=== PATIENT | male | born 1945 | race Caucasian/White ===

== ENCOUNTER 2019-04-25 17:08 | Emergency (ER) | payer BC, MEDICARE ==
[2019-04-25 17:21] VITALS: RESP 20; TEMP 97.6
[2019-04-25] MEDS ORDERED: IPRATROPIUM-ALBUTEROL 3 ML NEB INHALATION STA (17:52)
--- NOTE | 2019-04-25 18:18 | ED ---
SOB HPI - General Chief Complaint: Shortness of Breath Stated Complaint: SOB Time Seen by Provider: 04/25/19 17:39 Source: patient, RN notes reviewed, old records reviewed Mode of arrival: ambulatory Limitations: no limitations - History of Present Illness Initial Comments: This is a 74-year-old male here for evaluation presents today for evaluation of shortness of breath history of heart failure patient quit smoking about 6 months ago. Increased cough or congestion but although it feels better in the [place] is in the room with oxygen. Patient denying any fevers no chest pain or shortness of breath currently. No recent travel history, no other complaints MD Complaint: shortness of breath, cough -: days(s) Severity: moderate Severity scale (1-10): 4 Consistency: constant Improves With: oxygen, rest Worsens With: exertion, movement Known History Of: COPD, congestive heart failure Context: recent URI Associated Symptoms: cough, sputum production Treatments Prior to Arrival: none - Related Data Allergies Allergy/AdvReac Type Severity Reaction Status Date / Time No Known Allergies Allergy Verified 04/25/19 17:21 Review of Systems ROS Statement: Those systems with pertinent positive or pertinent negative responses have been documented in the HPI. ROS Other: All systems not noted in ROS Statement are negative. Past Medical History Past Medical History: Heart Failure, Hyperlipidemia, Hypertension History of Any Multi-Drug Resistant Organisms: None Reported Past Surgical History: Appendectomy Past Psychological History: No Psychological Hx Reported Smoking Status: Light tobacco smoker Past Alcohol Use History: None Reported Past Drug Use History: None Reported General Exam Limitations: no limitations General appearance: alert, in no apparent distress Head exam: Present: atraumatic, normocephalic, normal inspection Eye exam: Present: normal appearance, PERRL, EOMI. Absent: scleral icterus, conjunctival injection, periorbital swelling ENT exam: Present: normal exam, mucous membranes moist Neck exam: Present: normal inspection. Absent: tenderness, meningismus, lymphadenopathy Respiratory exam: Present: wheezes, decreased breath sounds, prolonged exp iratory. Absent: respiratory distress, rales, rhonchi, stridor Cardiovascular Exam: Present: normal rhythm, tachycardia, normal heart sounds. Absent: systolic murmur, diastolic murmur, rubs, gallop, clicks GI/Abdominal exam: Present: soft, normal bowel sounds. Absent: distended, tenderness, guarding, rebound, rigid Extremities exam: Present: normal inspection, full ROM, normal capillary refill. Absent: tenderness, pedal edema, joint swelling, calf tenderness Back exam: Present: normal inspection Neurological exam: Present: alert, oriented X3, CN II-XII intact Psychiatric exam: Present: normal affect, normal mood Skin exam: Present: warm, dry, intact, normal color. Absent: rash Course Vital Signs 04/25/19 04/25/19 04/25/19 17:19 18:38 18:50 Temperature 97.6 F Pulse Rate 101 H 101 H 100 Respiratory 20 Rate Blood Pressure 125/83 108/87 O2 Sat by Pulse 92 L 98 Oximetry 04/25/19 19:00 Temperature Pulse Rate 102 H Respiratory Rate Blood Pressure O2 Sat by Pulse Oximetry - Reevaluation(s) Reevaluation #1: 04/25/19 19:57 Medical record is reviewed Reevaluation #2: 04/25/19 19:57 Patient feels significantly improved Medical Decision Making - Medical Decision Making Finality of cough and shortness of breath. Mild bronchitis no pneumonia on x- ray no significant findings of hardware no chest pain no significant consideration for DVT or PE. Patient stable at this time and can be discharged home - Lab Data Result diagrams: 04/25/19 18:25 04/25/19 18:25 Lab Results 04/25/19 04/25/19 04/25/19 Range/Units 18:25 18:25 18:25 WBC 10.6 (3.8-10.6) k/uL RBC 4.22 L (4.30-5.90) m/uL Hgb 13.4 (13.0-17.5) gm/dL Hct 41.1 (39.0-53.0) % MCV 97.4 (80.0-100.0) fL MCH 31.8 (25.0-35.0) pg MCHC 32.7 (31.0-37.0) g/dL RDW 16.9 H (11.5-15.5) % Plt Count 284 (150-450) k/uL Neutrophils % 87 % Lymphocytes % 6 % Monocytes % 5 % Eosinophils % 1 % Basophils % 0 % Neutrophils # 9.2 H (1.3-7.7) k/uL Lymphocytes # 0.6 L (1.0-4.8) k/uL Monocytes # 0.6 (0-1.0) k/uL Eosinophils # 0.1 (0-0.7) k/uL Basophils # 0.0 (0-0.2) k/uL Anisocytosis Slight Macrocytosis Slight PT 14.1 H (9.0-12.0) sec INR 1.4 H (<1.2) APTT 26.0 (22.0-30.0) sec Sodium 138 (137-145) mmol/L Potassium 5.1 (3.5-5.1) mmol/L Chloride 105 (98-107) mmol/L Carbon Dioxide 22 (22-30) mmol/L Anion Gap 11 mmol/L BUN 33 H (9-20) mg/dL Creatinine 1.13 (0.66-1.25) mg/dL Est GFR (CKD-EPI)AfAm 73 (>60 ml/min/1.73 sqM) Est GFR (CKD-EPI)NonAf 64 (>60 ml/min/1.73 sqM) Glucose 127 H (74-99) mg/dL Calcium 9.6 (8.4-10.2) mg/dL Magnesium 2.0 (1.6-2.3) mg/dL Total Bilirubin 3.0 H (0.2-1.3) mg/dL AST 94 H (17-59) U/L ALT 108 H (21-72) U/L Alkaline Phosphatase 205 H (38-126) U/L Creatine Kinase 80 (55-170) U/L Troponin I (0.000-0.034) ng/mL NT-Pro-B Natriuret Pep pg/mL Total Protein 7.8 (6.3-8.2) g/dL Albumin 4.2 (3.5-5.0) g/dL 04/25/19 04/25/19 Range/Units 18:25 18:25 WBC (3.8-10.6) k/uL RBC (4.30-5.90) m/uL Hgb (13.0-17.5) gm/dL Hct (39.0-53.0) % MCV (80.0-100.0) fL MCH (25.0-35.0) pg MCHC (31.0-37.0) g/dL RDW (11.5-15.5) % Plt Count (150-450) k/uL Neutrophils % % Lymphocytes % % Monocytes % % Eosinophils % % Basophils % % Neutrophils # (1.3-7.7) k/uL Lymphocytes # (1.0-4.8) k/uL Monocytes # (0-1.0) k/uL Eosinophils # (0-0.7) k/uL Basophils # (0-0.2) k/uL Anisocytosis Macrocytosis PT (9.0-12.0) sec INR (<1.2) APTT (22.0-30.0) sec Sodium (137-145) mmol/L Potassium (3.5-5.1) mmol/L Chloride (98-107) mmol/L Carbon Dioxide (22-30) mmol/L Anion Gap mmol/L BUN (9-20) mg/dL Creatinine (0.66-1.25) mg/dL Est GFR (CKD-EPI)AfAm (>60 ml/min/1.73 sqM) Est GFR (CKD-EPI)NonAf (>60 ml/min/1.73 sqM) Glucose (74-99) mg/dL Calcium (8.4-10.2) mg/dL Magnesium (1.6-2.3) mg/dL Total Bilirubin (0.2-1.3) mg/dL AST (17-59) U/L ALT (21-72) U/L Alkaline Phosphatase (38-126) U/L Creatine Kinase (55-170) U/L Troponin I <0.012 (0.000-0.034) ng/mL NT-Pro-B Natriuret Pep 5110 pg/mL Total Protein (6.3-8.2) g/dL Albumin (3.5-5.0) g/dL - Radiology Data Radiology results: report reviewed (Chest x-ray is negative for acute disease), image reviewed Disposition Clinical Impression: Acute exacerbation of chronic obstructive pulmonary disease Disposition: HOME SELF-CARE Condition: Good Instructions (If sedation given, give patient instructions): Acute Bronchitis (ED) Is patient prescribed a controlled substance at d/c from ED?: No Referrals: Hiram Briggs MD [Primary Care Provider] - 1-2 days
[2019-04-25 18:34] LABS: Anisocytosis Slight; Basophils % (A) 0 %; Eosinophils # (A) 0.1 k/uL (0-0.7); Eosinophils % (A) 1 %; HCT 41.1 % (39.0-53.0); HGB 13.4 gm/dL (13.0-17.5); Lymphocytes # (A) 0.6 k/uL (1.0-4.8); Lymphocytes % (A) 6 %; MCH 31.8 pg (25.0-35.0); MCHC 32.7 g/dL (31.0-37.0); MCV 97.4 fL (80.0-100.0); Macrocytosis Slight; Mean Platelet Volume 7.4; Monocytes # (A) 0.6 k/uL (0-1.0); Monocytes % (A) 5 %; Neutrophils # (A) 9.2 k/uL (1.3-7.7); Neutrophils % (A) 87 %; Platelet Count 284 k/uL (150-450); RBC 4.22 m/uL (4.30-5.90); RDW 16.9 % (11.5-15.5); WBC 10.6 k/uL (3.8-10.6)
[2019-04-25 18:43] LABS: INR 1.4 (<1.2); Prothrombin Time 14.1 sec (9.0-12.0)
[2019-04-25 18:57] LABS: Albumin 4.2 g/dL (3.5-5.0); Calcium 9.6 mg/dL (8.4-10.2); Potassium 5.1 mmol/L (3.5-5.1); Total Protein 7.8 g/dL (6.3-8.2)
--- NOTE | 2019-04-25 19:37 | XR ---
EXAMINATION TYPE: XR chest 2V DATE OF EXAM: 04/25/2019 COMPARISON: None HISTORY: Difficulty breathing TECHNIQUE: Frontal and lateral views of the chest are obtained. FINDINGS: Heart is slightly enlarged. There is no heart failure. There is slight coarsening of inter stitial markings. There are chest leads. Bony thorax is intact. IMPRESSION: Mild cardiomegaly. Minimal fibrotic changes. No heart failure.
[2019-04-25] MEDS ORDERED: DEXAMETHASONE SOD PHOSPHATE 10 MG/ML 1 ML VIAL IV STA (20:09)
[2019-04-25] MEDS ORDERED: AZITHROMYCIN 500 MG TAB PO STA (20:09)
[2019-04-25 21:03] VITALS: BP 119/83; PULSE 92
== END 2019-04-25 21:13 | disposition home or self-care (01) ==
LOC: EC 17:08
DX: J44.1 Chronic obstructive pulmonary disease with (acute) exacerbation (principal); F17.210 Nicotine dependence, cigarettes, uncomplicated; I11.0 Hypertensive heart disease with heart failure; I50.9 Heart failure, unspecified
CPT/HCPCS: 36415; 94640; 93005; 83880; 80053; 82550; 83735; 84484; 85025; 85610; 85730; 71046; 99285; 96374; J1100

== ENCOUNTER 2019-05-04 14:28 | Inpatient (IN) | payer MEDICARE ==
[2019-05-04] MEDS ORDERED: SODIUM CHLORIDE 0.9% 1,000 ML IV STA (15:22)
[2019-05-04] MEDS ORDERED: FUROSEMIDE 10 MG/ML 4 ML VIAL IV STA (15:22)
[2019-05-04] MEDS ORDERED: IPRATROPIUM-ALBUTEROL 3 ML NEB INHALATION STA (15:22)
[2019-05-04 15:56] LABS: Anisocytosis Slight; Basophils % (A) 0 %; Eosinophils # (A) 0.1 k/uL (0-0.7); Eosinophils % (A) 1 %; HCT 47.6 % (39.0-53.0); HGB 15.3 gm/dL (13.0-17.5); Hypochromasia Slight; Lymphocytes # (A) 0.9 k/uL (1.0-4.8); Lymphocytes % (A) 10 %; MCH 32.1 pg (25.0-35.0); MCHC 32.2 g/dL (31.0-37.0); MCV 99.6 fL (80.0-100.0); Macrocytosis Slight; Mean Platelet Volume 7.9; Monocytes # (A) 0.6 k/uL (0-1.0); Monocytes % (A) 7 %; Neutrophils # (A) 7.5 k/uL (1.3-7.7); Neutrophils % (A) 81 %; Platelet Count 260 k/uL (150-450); RBC 4.78 m/uL (4.30-5.90); RDW 17.7 % (11.5-15.5); WBC 9.3 k/uL (3.8-10.6)
[2019-05-04 15:58] LABS: Albumin 4.6 g/dL (3.5-5.0); Calcium 9.9 mg/dL (8.4-10.2); Magnesium 2.2 mg/dL (1.6-2.3); Potassium 5.1 mmol/L (3.5-5.1); Total Bilirubin 3.5 mg/dL (0.2-1.3); Total Protein 8.4 g/dL (6.3-8.2)
[2019-05-04 16:01] LABS: INR 1.3 (<1.2); Partial Thromboplastin Time 24.8 sec (22.0-30.0); Prothrombin Time 13.5 sec (9.0-12.0)
--- NOTE | 2019-05-04 16:25 | XR ---
EXAMINATION TYPE: XR chest 2V DATE OF EXAM: 05/04/2019 COMPARISON: 04/25/2019 INDICATION: Short of breath TECHNIQUE: Frontal and lateral views of the chest are obtained. FINDINGS: The heart size is enlarged. The pulmonary vasculature is normal. The lungs are clear. IMPRESSION: 1. Moderate cardiomegaly
--- NOTE | 2019-05-04 16:37 | ED ---
General Adult HPI - General Source: patient, RN notes reviewed, old records reviewed Mode of arrival: wheelchair Limitations: no limitations <Maggie Rousseau - Last Filed: 05/04/19 18:05> <Ailin Aly - Last Filed: 05/08/19 16:53> - General Chief complaint: Shortness of Breath Stated complaint: SOB Time Seen by Provider: 05/04/19 15:08 - History of Present Illness Initial comments: 75-year-old male presents today for evaluation for concern for worsening cough, shortness of breath for the past 2 weeks. Patient reports he is on her primary care doctor this time. Patient states that he's had significant swelling in his lower extremities as well as his abdomen and groin. Patient states that he's treated in the emergency department 9 days ago and was diagnosed with bronchitis. That time Patient was placed on azithromycin and albuterol. Patient states that his symptoms are worsening. Patient states that he has had worsening shortness of breath on exertion. Patient's daughters report that they return to his home to check on him and he was significantly short of breath. (Maggie Rousseau) - Related Data Home Medications Medication Instructions Recorded Confirmed Albuterol Nebulized [Ventolin 2.5 mg INHALATION RT-QID PRN 05/04/19 05/04/19 Nebulized] Albuterol Sulfate [Proair Hfa] 1 - 2 puff INHALATION RT-Q4H PRN 05/04/19 05/04/19 Aspirin EC [Ecotrin Low Dose] 81 mg PO DAILY 05/04/19 05/04/19 Atorvastatin [Lipitor] 20 mg PO DAILY 05/04/19 05/04/19 Previous Rx's Medication Instructions Recorded Carvedilol [Coreg] 3.125 mg PO BID-W/MEALS #60 tab 05/08/19 Spironolactone [Aldactone] 25 mg PO DAILY #30 tab 05/08/19 Allergies Allergy/AdvReac Type Severity Reaction Status Date / Time No Known Allergies Allergy Verified 05/04/19 17:34 Review of Systems ROS Other: All systems not noted in ROS Statement are negative. <Maggie Rousseau - Last Filed: 05/04/19 18:05> ROS Other: All systems not noted in ROS Statement are negative. <Ailin Aly - Last Filed: 05/08/19 16:53> ROS Statement: Those systems with pertinent positive or pertinent negative responses have been documented in the HPI. Past Medical History Past Medical History: Heart Failure, Hyperlipidemia, Hypertension History of Any Multi-Drug Resistant Organisms: None Reported Past Surgical History: Appendectomy Past Psychological History: No Psychological Hx Reported Smoking Status: Light tobacco smoker Past Alcohol Use History: None Reported Past Drug Use History: None Reported <Maggie Rousseau - Last Filed: 05/04/19 18:05> General Exam Limitations: no limitations General appearance: alert, in no apparent distress Head exam: Present: atraumatic, normocephalic, normal inspection Eye exam: Present: normal appearance ENT exam: Present: normal exam, mucous membranes moist Neck exam: Present: normal inspection. Absent: tenderness, meningismus, lymphadenopathy Respiratory exam: Present: decreased breath sounds. Absent: normal lung sounds bilaterally, respiratory distress, wheezes, rales, rhonchi, stridor Cardiovascular Exam: Present: regular rate, normal rhythm, normal heart sounds, other (Patient is short of breath with minor exertion. Decreased lung sounds.). Absent: systolic murmur, diastolic murmur, rubs, gallop, clicks GI/Abdominal exam: Present: soft, normal bowel sounds. Absent: distended, tenderness, guarding, rebound, rigid exam: Present: scrotal swelling (Patient has penile and edema, and a firm abdomen. Concern for fluid overload status.), other. Absent: normal inspection Extremities exam: Present: normal inspection, full ROM, normal capillary refill, pedal edema (Patient is 4+ bilateral pedal edema.). Absent: tenderness, joint swelling, calf tenderness Back exam: Present: normal inspection Neurological exam: Present: alert, oriented X3, CN II-XII intact Psychiatric exam: Present: normal affect, normal mood Skin exam: Present: warm, dry, intact, normal color. Absent: rash <Maggie Rousseau - Last Filed: 05/04/19 18:05> - General Exam Comments Initial Comments: 75-year-old male. Alert and oriented 3. Pleasant. (Maggie Rousseau) Course Vital Signs 05/04/19 05/04/19 05/04/19 14:35 15:56 16:02 Temperature 97.5 F L Pulse Rate 107 H 108 H 103 H Respiratory 22 Rate Blood Pressure 121/87 O2 Sat by Pulse 96 Oximetry 05/04/19 05/04/19 17:00 20:24 Temperature 97.6 F Pulse Rate 109 H 98 Respiratory 24 18 Rate Blood Pressure 103/82 114/84 O2 Sat by Pulse 92 L 96 Oximetry EKG Findings - EKG Comments: EKG Findings:: EKG performed at 1544 shows sinus tachycardia, occasional PVCs and fusion compresses. Possible left atrial ALLERGIC. Left bundle branch block. Abnormal EKG. Ventricular rate of 108 beats were minute. Was 184 ms. She voodoo is 150 ms. QT QTc is 360/4 and 93 ms. <Maggie Rousseau - Last Filed: 05/04/19 18:05> Medical Decision Making - Lab Data Result diagrams: 05/04/19 15:30 05/04/19 15:30 - Radiology Data Radiology results: report reviewed <Maggie Rousseau - Last Filed: 05/04/19 18:05> - Lab Data Result diagrams: 05/07/19 05:55 05/08/19 05:26 <Ailin Aly - Last Filed: 05/08/19 16:53> - Medical Decision Making 75-year-old male presents today with worsening dyspnea and abdominal and lower extremity any swelling. Patient states that he's also had some cough thing spasms. Patient at this time does have 4+ bilateral pedal edema. Lab work was reviewed. Does have an elevated BNP of 6000. Was started on Lasix. Patient reports is her primary care doctor is swelling at this time. She states she's had a known history of heart failure but is not on any medications for this time. I discussed that I like to admit the Patient for fluid overload dyspnea a nd repeat troponins. Patient is agreeable to this plan. Discussed case with Dr. Gillette. I discussed the case initially with Dr. Aly. (Maggie Rousseau) I was available for consultation in the emergency department. The history and physical exam were done by the midlevel provider. I was consulted for this patient's care. I reviewed the case with the midlevel and based on their presentation of the patient, I agree with the assessment, medical decision making and plan of care as documented. I agreed with hospital admission (Ailin Aly) - Lab Data Lab Results 1205/04/19 05/04/19 Range/Units 15:30 15:30 15:30 WBC 9.3 (3.8-10.6) k/uL RBC 4.78 (4.30-5.90) m/uL Hgb 15.3 (13.0-17.5) gm/dL Hct 47.6 (39.0-53.0) % MCV 99.6 (80.0-100.0) fL MCH 32.1 (25.0-35.0) pg MCHC 32.2 (31.0-37.0) g/dL RDW 17.7 H (11.5-15.5) % Plt Count 260 (150-450) k/uL Neutrophils % 81 % Lymphocytes % 10 % Monocytes % 7 % Eosinophils % 1 % Basophils % 0 % Neutrophils # 7.5 (1.3-7.7) k/uL Lymphocytes # 0.9 L (1.0-4.8) k/uL Monocytes # 0.6 (0-1.0) k/uL Eosinophils # 0.1 (0-0.7) k/uL Basophils # 0.0 (0-0.2) k/uL Hypochromasia Slight Anisocytosis Slight Macrocytosis Slight PT (9.0-12.0) sec INR (<1.2) APTT (22.0-30.0) sec Sodium 139 (137-145) mmol/L Potassium 5.1 (3.5-5.1) mmol/L Chloride 104 (98-107) mmol/L Carbon Dioxide 22 (22-30) mmol/L Anion Gap 13 mmol/L BUN 47 H (9-20) mg/dL Creatinine 1.21 (0.66-1.25) mg/dL Est GFR (CKD-EPI)AfAm 67 (>60 ml/min/1.73 sqM) Est GFR (CKD-EPI)NonAf 58 (>60 ml/min/1.73 sqM) Glucose 130 H (74-99) mg/dL Calcium 9.9 (8.4-10.2) mg/dL Magnesium 2.2 (1.6-2.3) mg/dL Total Bilirubin 3.5 H (0.2-1.3) mg/dL AST 79 H (17-59) U/L ALT 103 H (4-49) U/L Alkaline Phosphatase 260 H (38-126) U/L Troponin I (0.000-0.034) ng/mL NT-Pro-B Natriuret Pep 6550 pg/mL Total Protein 8.4 H (6.3-8.2) g/dL Albumin 4.6 (3.5-5.0) g/dL Urine Color Urine Appearance (Clear) Urine pH (5.0-8.0) Ur Specific Spar[place] (1.001-1.035) Urine Protein (Negative) Urine Glucose (UA) (Negative) Urine Ketones (Negative) Urine Blood (Negative) Urine Nitrite (Negative) Urine Bilirubin (Negative) Urine Urobilinogen (<2.0) mg/dL Ur Leukocyte Esterase (Negative) Urine RBC (0-5) /hpf Urine WBC (0-5) /hpf Hyaline Casts (0-2) /lpf Urine Mucus (None) /hpf 05/04/19 05/04/19 05/04/19 Range/Units 15:30 15:30 17:00 WBC (3.8-10.6) k/uL RBC (4.30-5.90) m/uL Hgb (13.0-17.5) gm/dL Hct (39.0-53.0) % MCV (80.0-100.0) fL MCH (25.0-35.0) pg MCHC (31.0-37.0) g/dL RDW (11.5-15.5) % Plt Count (150-450) k/uL Neutrophils % % Lymphocytes % % Monocytes % % Eosinophils % % Basophils % % Neutrophils # (1.3-7.7) k/uL Lymphocytes # (1.0-4.8) k/uL Monocytes # (0-1.0) k/uL Eosinophils # (0-0.7) k/uL Basophils # (0-0.2) k/uL Hypochromasia Anisocytosis Macrocytosis PT 13.5 H (9.0-12.0) sec INR 1.3 H (<1.2) APTT 24.8 (22.0-30.0) sec Sodium (137-145) mmol/L Potassium (3.5-5.1) mmol/L Chloride (98-107) mmol/L Carbon Dioxide (22-30) mmol/L Anion Gap mmol/L BUN (9-20) mg/dL Creatinine (0.66-1.25) mg/dL Est GFR (CKD-EPI)AfAm (>60 ml/min/1.73 sqM) Est GFR (CKD-EPI)NonAf (>60 ml/min/1.73 sqM) Glucose (74-99) mg/dL Calcium (8.4-10.2) mg/dL Magnesium (1.6-2.3) mg/dL Total Bilirubin (0.2-1.3) mg/dL AST (17-59) U/L ALT (4-49) U/L Alkaline Phosphatase (38-126) U/L Troponin I 0.017 (0.000-0.034) ng/mL NT-Pro-B Natriuret Pep pg/mL Total Protein (6.3-8.2) g/dL Albumin (3.5-5.0) g/dL Urine Color Yellow Urine Appearance Clear (Clear) Urine pH 5.0 (5.0-8.0) Ur Specific [place] 1.010 (1.001-1.035) Urine Protein 1+ H (Negative) Urine Glucose (UA) Negative (Negative) Urine Ketones Negative (Negative) Urine Blood Negative (Negative) Urine Nitrite Negative (Negative) Urine Bilirubin Negative (Negative) Urine Urobilinogen <2.0 (<2.0) mg/dL Ur Leukocyte Esterase Negative (Negative) Urine RBC <1 (0-5) /hpf Urine WBC <1 (0-5) /hpf Hyaline Casts 6 H (0-2) /lpf Urine Mucus Rare H (None) /hpf - Radiology Data Chest x-ray shows moderate cardiomegaly. (Maggie Rousseau) Disposition Is patient prescribed a controlled substance at d/c from ED?: No Time of Disposition: 18:08 <Maggie Rousseau - Last Filed: 05/04/19 18:05> <Ailin Aly - Last Filed: 05/08/19 16:53> Clinical Impression: Fluid overload, Liver enzyme elevation Disposition: HOME SELF-CARE Condition: Stable
[2019-05-04 17:41] LABS: Appearance,Urine Clear (Clear); Bilirubin,Urine Negative (Negative); Blood,Urine Negative (Negative); Color,Urine Yellow; Glucose,Urine (UA) Negative (Negative); Hyaline Casts,Urine 6 /lpf (0-2); Ketones,Urine Negative (Negative); Leukocyte Esterase,Urine Negative (Negative); Mucus,Urine Rare /hpf; Nitrite,Urine Negative (Negative); Protein,Urine 1+ (Negative); RBC,Urine <1 /hpf (0-5); Urobilinogen,Urine <2.0 mg/dL (<2.0); WBC,Urine <1 /hpf (0-5)
[2019-05-04] MEDS ORDERED: ALBUTEROL NEBULIZED 2.5 MG/3 ML INHALATION PRN (18:08)
--- NOTE | 2019-05-04 23:35 | P.HPIM ---
Review of Systems Pertinent positives as noted in HPI. All other systems were reviewed and are negative Past Medical History Past Medical History: Heart Failure, Hyperlipidemia, Hypertension History of Any Multi-Drug Resistant Organisms: None Reported Past Surgical History: Appendectomy Past Psychological History: No Psychological Hx Reported Smoking Status: Light tobacco smoker Past Alcohol Use History: None Reported Past Drug Use History: None Reported - Past Family History family Family Medical History: No Reported History Medications and Allergies Home Medications Medication Instructions Recorded Confirmed Type Albuterol Nebulized [Ventolin 2.5 mg INHALATION RT-QID PRN 05/04/19 05/04/19 History Nebulized] Albuterol Sulfate [Proair Hfa] 1 - 2 puff INHALATION RT-Q4H PRN 05/04/19 05/04/19 History Aspirin EC [Ecotrin Low Dose] 81 mg PO DAILY 05/04/19 05/04/19 History Atorvastatin [Lipitor] 20 mg PO DAILY 05/04/19 05/04/19 History Allergies Allergy/AdvReac Type Severity Reaction Status Date / Time No Known Allergies Allergy Verified 05/04/19 17:34 Physical Exam Vitals: Vital Signs Temp Pulse Resp BP Pulse Ox 05/04/19 17:00 109 H 24 103/82 92 L 05/04/19 16:02 103 H 05/04/19 15:56 108 H 05/04/19 14:35 97.5 F L 107 H 22 121/87 96 Intake and Output 05/04/19 05/04/19 05/04/19 06:59 14:59 22:59 Output Total 200 Balance -200 Output: Urine 200 Other: Weight 81.647 kg Constitutional: No acute distress, conversant, pleasant Eyes: Anicteric sclerae, moist conjunctiva, Pupils equal round reactive to light ENMT: NC/AT Oropharynx clear, no erythema, exudates Neck: Supple, FROM, no masses, positive for JVD No carotid bruits No thyromegaly Lungs: decrease breath sounds at lung bases, left worse than right wtih fine inspiratory rales Clear to percussion Normal respiratory effort, no accessory muscle use Cardiovascular: Heart regular in rate and rhythm, No murmurs, gallops, or rubs +2 peripheral edema bialteral legs and thigh Abdominal: Soft Nontender, no guarding, rebound or rigidity Abdomen moving with respiration Normoactive bowel sounds liver palpable 4 fingers below costal margin No palpable mass No abdominal wall hernia noted no shifting dullness or transmitted thrill scrotal swelling Skin: other than swelling of the scrotum and lower legs Normal temperature, tone, texture, turgor No induration No subcutaneous nodules No rash, lesions No ulcers Extremities: No digital cyanosis No clubbing Pedal pulses intact and symmetrical Radial pulses intact and symmetrical No calf tenderness Psychiatric: Alert and oriented to person, place and time Appropriate affect fair judgment Neuro Muscles Strength 5/5 in all 4 extremities Sensation to light touch grossly present throughout Cranial nerves II-XII grossly intact No focal sensory deficits Lymphatics: no palpable cervical or supraclavicular , or inguinal lymph nodes Results CBC & Chem 7: 05/04/19 15:30 05/04/19 15:30 Labs: Abnormal Lab Results - Last 24 Hours (Table) 05/04/19 05/04/19 05/04/19 Range/Units 15:30 15:30 15:30 RDW 17.7 H (11.5-15.5) % Lymphocytes # 0.9 L (1.0-4.8) k/uL PT 13.5 H (9.0-12.0) sec INR 1.3 H (<1.2) BUN 47 H (9-20) mg/dL Glucose 130 H (74-99) mg/dL Total Bilirubin 3.5 H (0.2-1.3) mg/dL AST 79 H (17-59) U/L ALT 103 H (4-49) U/L Alkaline Phosphatase 260 H (38-126) U/L Total Protein 8.4 H (6.3-8.2) g/dL Urine Protein (Negative) Hyaline Casts (0-2) /lpf Urine Mucus (None) /hpf 05/04/19 Range/Units 17:00 RDW (11.5-15.5) % Lymphocytes # (1.0-4.8) k/uL PT (9.0-12.0) sec INR (<1.2) BUN (9-20) mg/dL Glucose (74-99) mg/dL Total Bilirubin (0.2-1.3) mg/dL AST (17-59) U/L ALT (4-49) U/L Alkaline Phosphatase (38-126) U/L Total Protein (6.3-8.2) g/dL Urine Protein 1+ H (Negative) Hyaline Casts 6 H (0-2) /lpf Urine Mucus Rare H (None) /hpf Assessment and Plan Assessment: 75-year-old male with history of hyperlipidemia hypertension. vague History of congestive heart failure patient reports most recent left ventricular ejection fraction a year ago was 15%.however he has not been on any medications at that time entresto was prescribed but could not afford it and then he was lost to follow up . he reports CAD 10 years ago that was treated with angioplasty , no stent needed. the patient has been very active all these years involved in many activities, reports that he has been able to climb a flight of stairs with no limitations. however, about 3-4 weeks ago, suddenly he had shortness of breath and a coughing spell ended up with urinary incontinence . this happened after exposure to cold weather. since then he has not been feeling well and not leaving the house at all. he visited the ED then and was diagnosed with acute bronchitis and finished a course of ABx. 2 days ago he had another episode of near syncope and coughing spell along with urinary incontinence. , since then he noticed swelling of bilateral legs and his scrotum . non productive cough lingering over the past 3 weeks. no fever, no chills. denies any recent traveling , hospitalization or srugery. denies any sick contacts. he has noticed that he is getting short of breath with minimal activity , just walking around his house. but he denies any orthopenea, PNDs or wheezing. upon arrival to the ED today, he was found to have tachycardia, low oxygen sat, and anasarca . CXR showed cardiomegally but no fluid overload. he was started on diuretics and admitted for further care and management patient does not take any medications at home other than Statin. he never experienced anything similar to this in his life. and has never been sick for many years,. Plan: progressive shortness of breath, 2/2 underlying systolic congestive heart failure with acute exacerbation cardiomegally on CXR history of CAD frequent PVCs Anasarca check Echocardiogram IV duresis daily weight cardiology consult obtain records. from dr. Briggs [phone] cardiac monitoring trend cardiac enzymes follow up electrolytes check D dimer, low probabilty for PE elevated liver enzymes possibly 2/2 passive hepatic congestion , rule out portal venous thrombosis check abd us and doppler follow up liver enzymes Hold statin chronic condition s hypertension hyperlipidemia h/o CAD CODE STATUS:full code DVT prophylaxis: heparin sc tid Discussed with: Patient, ER, RN Anticipated length of stay > than [address]: home A total of 85 minutes was spent on the care of this complex patient more than 50% of the time was spent in counseling and care coordination.
[2019-05-04 23:44] LABS: Creatine Kinase MB 3.9 ng/mL (0.0-2.4); Troponin I 0.019 ng/mL (0.000-0.034)
[2019-05-05] MEDS: FUROSEMIDE 10 MG/ML 4 ML VIAL IV SCH ×2 (00:06→09:07)
[2019-05-05] MEDS: HEPARIN SODIUM,PORCINE 5,000 UNIT/ML 1 ML VIAL SQ SCH ×3 (00:06→17:30)
--- NOTE | 2019-05-05 00:12 | US ---
EXAMINATION TYPE: US venous doppler duplex LE DATE OF EXAM: 05/05/2019 12:03 AM COMPARISON: NONE CLINICAL HISTORY: elevated D dimer. Elevated D dimer. No hx of DVT. Patient does not take blood thinn ers. SIDE PERFORMED: Bilateral TECHNIQUE: The lower extremity deep venous system is examined utilizing real time linear array sonog emilie with graded compression, doppler sonography and color-flow sonography. VESSELS IMAGED: External Iliac Vein (EIV) Common Femoral Vein Deep Femoral Vein Greater Saphenous Vein * Femoral Vein Popliteal Vein Small Saphenous Vein * Proximal Calf Veins (* superficial vessels) Right Leg: No evidence of DVT at this time in veins imaged from prox calf veins to EIV. Left Leg: No evidence of DVT at this time in veins imaged from prox calf veins to EIV. IMPRESSION: No evidence of deep venous thrombosis in both legs.
[2019-05-05 03:52] LABS: Anisocytosis Slight; Basophils % (A) 0 %; Eosinophils # (A) 0.1 k/uL (0-0.7); Eosinophils % (A) 1 %; HCT 42.6 % (39.0-53.0); HGB 13.9 gm/dL (13.0-17.5); Hypochromasia Slight; Lymphocytes # (A) 0.8 k/uL (1.0-4.8); Lymphocytes % (A) 8 %; MCH 32.7 pg (25.0-35.0); MCHC 32.5 g/dL (31.0-37.0); MCV 100.6 fL (80.0-100.0); Macrocytosis Moderate; Mean Platelet Volume 7.6; Monocytes # (A) 0.6 k/uL (0-1.0); Monocytes % (A) 6 %; Neutrophils # (A) 8.3 k/uL (1.3-7.7); Neutrophils % (A) 83 %; Platelet Count 237 k/uL (150-450); RBC 4.24 m/uL (4.30-5.90); RDW 17.9 % (11.5-15.5); WBC 9.9 k/uL (3.8-10.6)
[2019-05-05 03:57] LABS: Albumin 3.9 g/dL (3.5-5.0); Calcium 9.3 mg/dL (8.4-10.2); Potassium 4.1 mmol/L (3.5-5.1); Total Bilirubin 2.7 mg/dL (0.2-1.3); Total Protein 7.3 g/dL (6.3-8.2)
[2019-05-05 04:18] LABS: Creatine Kinase MB 4.1 ng/mL (0.0-2.4); Troponin I 0.021 ng/mL (0.000-0.034)
[2019-05-05] MEDS ORDERED: ATORVASTATIN 20 MG TAB PO SCH (09:00)
[2019-05-05] MEDS: ASPIRIN 81 MG PO SCH (09:07)
--- NOTE | 2019-05-05 09:08 | US ---
EXAMINATION TYPE: US abdomen complete, US liver doppler DATE OF EXAM: 05/05/2019 COMPARISON: NONE CLINICAL HISTORY: elevated liver enzymes, anasarca. SOB, elevated liver enzymes EXAM MEASUREMENTS: Liver Length: 18.5 cm Gallbladder Wall: 0.3 cm CBD: 0.3 cm Spleen: 10.6 cm Right Kidney: 11.0 x 4.6 x 5.1 cm Left Kidney: 11.2 x 5.4 x 4.3 cm Difficult and limited study due to patient's heavy breathing and inability to hold his breath Pancreas: visualized portions wnl, partially obscured by overlying midline bowel gas Liver: mildly enlarged, 1.6 x 1.4 x 1.4cm hypoechoic complex lesion left lobe Gallbladder: wall measures within upper limits of normal at 0.3cm Evidence for sonographic Cheek's sign: no CBD: visualized portions wnl, limited by overlying bowel gas Spleen: wnl Right Kidney: wnl Left Kidney: wnl Upper IVC: wnl Abd Aorta: visualized portions wnl, mid and distal portion obscured by overlying midline bowel gas Small amount of free fluid within RUQ LIVER DOPPLER ULTRASOUND Portal vein: Main Portal Vein diameter: 1.3 cm Flow direction: Hepatopetal Color flow patency seen within the main portal vein: yes Color flow patency seen within the right portal vein: yes Color flow patency seen within the left portal vein: yes IVC/Hepatic Veins: Color flow patency seen within the IVC: yes Color flow patency seen within the right hepatic vein: yes Color flow patency seen within the middle hepatic vein: yes Color flow patency seen within the left hepatic vein: yes Splenic Vein: Color flow patency seen within the splenic vein: yes The visualized liver is heterogeneous. Evaluation for focal masses is suboptimal due to the heterogen eity. Some lobulation to the hepatic surface is thought present. Trace ascites inferiorly is noted. T isaak end of study technologist nolan a 1.4 cm hypoechoic anechoic lesion favoring septated thin-wal led cyst in the left hepatic lobe but too small to overall characterized on background heterogeneous liver. The intrahepatic portion of the IVC and visualized proximal abdominal aorta are within normal limits. Suboptimal evaluation mid and distal abdominal aorta due to overlying bowel gas. There is no evidence of cholelithiasis. Common bile duct is unremarkable. The visualized portions of the pancr eas are homogenous. Significant portions are secured by overlying bowel gas and images saved. The sp jerrica is not enlarged. Kidneys are symmetric and free of hydronephrosis. No renal lesions are seen. IMPRESSION: 1. Underlying hepatocellular disease or cirrhosis is felt present with trace ascites. 2. No ultrasound evidence for underlying portal hypertension or portal vein thrombosis. 3. Suboptimal study noted due to bowel gas and patient's inability to hold breath.
--- NOTE | 2019-05-05 10:50 | P.PN ---
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 He also had a myocardial infarction that was treated with balloon angioplasty but no stent approximately 10 years ago. He presented to the ER here for shortness of breath and subsequently was found to have acute exacerbation of congestive heart failure. He was started on IV diuretics and admitted for further monitoring. Patient seen and examined at bedside. He states that shortness of breath and edema are much improved than yesterday. He denies any nausea or vomiting. Denies any chest pain. Still adverse to receiving adequate medical care and states that he stopped and trust dose secondary to cough. Does report some increased shortness of breath when he goes in the cold air as well as paroxysmal nocturnal dyspnea and two-pillow orthopnea. Objective - Vital Signs Vital signs: Vital Signs Temp 97.3 F L 05/05/19 08:00 Pulse 82 05/05/19 08:00 Resp 26 H 05/05/19 08:00 BP 106/48 05/05/19 08:00 Pulse Ox 97 05/05/19 08:00 Intake & Output 05/04/19 05/05/19 05/05/19 18:59 06:59 18:59 Intake Total 20 Output Total 200 632 Balance -200 -632 20 Weight 81.647 kg 80.5 kg Intake: IV 20 Invasive Line 1 20 Output: Urine 200 632 Other: # Voids 380 - Exam General: Ill appearing, no distress, appears at stated age Derm: warm, dry Head: atraumatic, normocephalic, symmetric Eyes: EOMI, no lid lag, anicteric sclera Mouth: no lip lesion, mucus membranes moist Cardiovascular: S1S2 reg, no murmur, positive posterior tibial pulse bilateral, Lungs: Rhonchi bilateral , no accessory muscle use Abdominal: soft, nontender to palpation, no guarding, no appreciable organomegaly Ext: no gross muscle atrophy, 2+ edema, no contractures Neuro: CN II-XI grossly intact, no focal neuro deficits Psych: Alert, oriented, appropriate affect - Labs CBC & Chem 7: 05/05/19 03:16 05/05/19 03:16 Labs: Abnormal Lab Results - Last 24 Hours (Table) 05/04/19 05/04/19 05/04/19 Range/Units 15:30 15:30 15:30 RBC (4.30-5.90) m/uL MCV (80.0-100.0) fL RDW 17.7 H (11.5-15.5) % Neutrophils # (1.3-7.7) k/uL Lymphocytes # 0.9 L (1.0-4.8) k/uL PT 13.5 H (9.0-12.0) sec INR 1.3 H (<1.2) D-Dimer (<0.60) mg/L FEU BUN 47 H (9-20) mg/dL Creatinine (0.66-1.25) mg/dL Glucose 130 H (74-99) mg/dL Total Bilirubin 3.5 H (0.2-1.3) mg/dL AST 79 H (17-59) U/L ALT 103 H (4-49) U/L Alkaline Phosphatase 260 H (38-126) U/L CK-MB (CK-2) (0.0-2.4) ng/mL Total Protein 8.4 H (6.3-8.2) g/dL Urine Protein (Negative) Hyaline Casts (0-2) /lpf Urine Mucus (None) /hpf 05/04/19 05/04/19 05/04/19 Range/Units 17:00 22:19 22:27 RBC (4.30-5.90) m/uL MCV (80.0-100.0) fL RDW (11.5-15.5) % Neutrophils # (1.3-7.7) k/uL Lymphocytes # (1.0-4.8) k/uL PT (9.0-12.0) sec INR (<1.2) D-Dimer 1.51 H (<0.60) mg/L FEU BUN (9-20) mg/dL Creatinine (0.66-1.25) mg/dL Glucose (74-99) mg/dL Total Bilirubin (0.2-1.3) mg/dL AST (17-59) U/L ALT (4-49) U/L Alkaline Phosphatase (38-126) U/L CK-MB (CK-2) 3.9 H (0.0-2.4) ng/mL Total Protein (6.3-8.2) g/dL Urine Protein 1+ H (Negative) Hyaline Casts 6 H (0-2) /lpf Urine Mucus Rare H (None) /hpf 05/05/19 05/05/19 05/05/19 Range/Units 03:16 03:16 03:16 RBC 4.24 L (4.30-5.90) m/uL MCV 100.6 H (80.0-100.0) fL RDW 17.9 H (11.5-15.5) % Neutrophils # 8.3 H (1.3-7.7) k/uL Lymphocytes # 0.8 L (1.0-4.8) k/uL PT (9.0-12.0) sec INR (<1.2) D-Dimer (<0.60) mg/L FEU BUN 45 H (9-20) mg/dL Creatinine 1.30 H (0.66-1.25) mg/dL Glucose 109 H (74-99) mg/dL Total Bilirubin 2.7 H (0.2-1.3) mg/dL AST 64 H (17-59) U/L ALT 92 H (4-49) U/L Alkaline Phosphatase 235 H (38-126) U/L CK-MB (CK-2) 4.1 H (0.0-2.4) ng/mL Total Protein (6.3-8.2) g/dL Urine Protein (Negative) Hyaline Casts (0-2) /lpf Urine Mucus (None) /hpf Assessment and Plan Assessment: Acute exacerbation of systolic congestive heart failure with ejection fraction of less than 20% and severe global hypokinesis with diastolic dysfunction and mo derate to severe pulmonary hypertension -Diuretic use, Aldactone -Will not start beta reynaldo secondary to acute exacerbation was no history of beta reynaldo use -Discussed with cardiology and likely would benefit from entresto -Telemetry, likely will need ischemic evaluation as well as a defibrillator which may be considered on an outpatient basis. Currently patient is adverse to defibrillator -Strict I's and O's -Daily weights -Cardiology recommendations Transaminitis -Likely secondary to hepatic congestion -Liver ultrasound also shows possibility of some cirrhosis secondary to ascites but does not comment on echotexture of the liver -Consider repeat outpatient ultrasound once fluid status is optimized -Avoidance of alcohol -Follow CMP -Hold statin 7 beat run of V. tach -Continue telemetry -Likely will need beta reynaldo/AICD -Cardiology recommendations History of coronary artery disease -Continue with aspirin. Hold statin secondary to elevated liver enzymes. Hypertension, currently controlled -Started on entresto DVT prophylaxis: heparin Discussed with: patient, nursing Anticipated discharge date: 1-[address]: home A total of 35 minutes was spent on the care of this complex patient more than 50% of the time was spent in counseling and care coordination.
--- NOTE | 2019-05-05 12:00 | ECHOF ---
Referral Reason:anasarca, cardiomegallyu MEASUREMENTS -------- HEIGHT: 172.7 cm WEIGHT: 80.3 kg BP: RVIDd: 5.6 cm (< 3.3) IVSd: 1.1 cm (0.6 - 1.1) LVIDd: 5.9 cm (3.9 - 5.3) LVPWd: 1.3 cm (0.6 - 1.1) IVSs: 1.0 cm LVIDs: 5.2 cm LVPWs: 1.4 cm LAESV Index (A-L): 43.56 ml/m Ao Diam: 2.9 cm (2.0 - 3.7) AV Cusp: 1.9 cm (1.5 - 2.6) LA Diam: 4.6 cm (2.7 - 3.8) AR PHT: 523 ms RAP: 20.00 mmHg RVSP: 63.54 mmHg FINDINGS -------- Undetermined rhythm. This was a technically good study. The left ventricular size is normal. There is mild concentric left ventricular hypertrophy. There is severe global hypokinesis of LV . Overall left ventricular systolic function is severely impair ed with, an EF < 20%. Increased Lap Grade III Diastolic Dysfunction. The right ventricle is moderately enlarged. LA is severely dilated >40 ml/m2 The right atrium is mildly enlarged. Interatrial and interventricular septum intact. The aortic valve is trileaflet and appears structurally normal. Trace amount of aortic regurgitatio n. There is no evidence of aortic stenosis. Mild mitral annular calcification present. Moderate mitral regurgitation is present. Moderate tricuspid regurgitation present. There is moderate to severe pulmonary hypertension. The right ventricular systolic pressure, as measured by Doppler, is 63.54mmHg. There is no pulmonic regurgitation present. The aortic root size is normal. The inferior vena cava is dilated with no significant inspiratory collapse which is consistent estima newton right atrial pressure of >20 mmHg. There is a small, generalized pericardial effusion present. CONCLUSIONS -------- 1. Undetermined rhythm. 2. This was a technically good study. 3. The left ventricular size is normal. 4. There is mild concentric left ventricular hypertrophy. 5. There is severe global hypokinesis of LV . 6. Overall left ventricular systolic function is severely impaired with, an EF < 20%. 7. Increased Lap Grade III Diastolic Dysfunction. 8. The right ventricle is moderately enlarged. 9. LA is severely dilated >40 ml/m2 10. The right atrium is mildly enlarged. 11. Interatrial and interventricular septum intact. 12. The aortic valve is trileaflet and appears structurally normal. 13. Trace amount of aortic regurgitation. 14. There is no evidence of aortic stenosis. 15. Mild mitral annular calcification present. 16. Moderate mitral regurgitation is present. 17. Moderate tricuspid regurgitation present. 18. There is moderate to severe pulmonary hypertension. 19. The right ventricular systolic pressure, as measured by Doppler, is 63.54mmHg. 20. There is no pulmonic regurgitation present. 21. The aortic root size is normal. 22. The inferior vena cava is dilated with no significant inspiratory collapse which is consistent es timated right atrial pressure of >20 mmHg. 23. There is a small, generalized pericardial effusion present. AN/SSN 2 4 OPERATOR: Michelle Salazar RDCS
[2019-05-05] MEDS: SACUBITRIL/VALSARTAN 24 MG-26 MG TABLET PO SCH ×2 (12:50→19:59)
[2019-05-05] MEDS: FUROSEMIDE 100 MG in SODIUM CHLORIDE 0.9% 90 ML IV SCH ×2 (12:50→21:21)
[2019-05-05] MEDS: SPIRONOLACTONE 25 MG TAB PO SCH (12:50)
--- NOTE | 2019-05-05 13:05 | CONS ---
CONSULTATION Mr. Peck is a 75-year-old gentleman who is seen for cardiac evaluation. This patient's history was obtained from him as well as his son-in-law. The patient has a known history of coronary artery disease with a prior history of angioplasty 10 years ago. Subsequently patient had congestive heart failure and impaired LV systolic function. Patient was told about 5 years ago that his ejection fraction is 15% and he was tried on some medications, but he subsequently stopped taking medications. The patient had been functionally doing quite well until about one month ago and then he had been getting progressively shortness of breath, a nonproductive cough with history suggestive of orthopnea and PND. The patient has a history of hyperlipidemia, hypertension. He denies any anginal pain and denies any history of alcohol intake. PAST SURGICAL HISTORY: The past surgical history includes a history of appendicectomy. HOME MEDICATIONS: None. PHYSICAL EXAMINATION: Physical examination at present reveals a 75-year-old gentleman who is comfortable and not in any acute distress. The patient's blood pressure is 118/85 mmHg, heart rate is 98 per minute. Head/ENT examination is negative. Neck is supple. Jugular venous pressure is elevated. Both the carotid pulses are felt. There is no bruit. Chest is symmetrical. HEART: The PMI is not felt. First and second heart sounds are normal. There are no significant murmurs noted. Lungs reveal bilateral basal rales. Abdomen is soft. Liver is not enlarged. There is a 2 to 3+ pedal edema. The patient's lab tests show electrolytes are normal. Creatinine is 1.30. The patient's liver enzymes are elevated. However, ultrasound of the liver and abdomen does not show any significant liver abnormality. Echocardiogram reveals a severely impaired left ventricular systolic function. FINAL IMPRESSION: This patient has been presented with congestive cardiac failure. Patient has underlying coronary artery disease; however, echocardiogram is more suggestive of dilated cardiomyopathy with severely impaired left ventricular systolic function. Patient has underlying left bundle branch block pattern. Discussed the condition with the patient as well as son-in-law. We will start the patient on Lasix drip and we will try the patient on Entresto as well as Aldactone. If patient's blood tolerates then we will start the patient on a small dose of beta reynaldo. After adequate medical treatment, patient will be considered for biventricular pacing and AICD. MMODL / IJN: [id number] /
[2019-05-05 15:00] VITALS: BMI 26.9
[2019-05-06] MEDS: HEPARIN SODIUM,PORCINE 5,000 UNIT/ML 1 ML VIAL SQ SCH ×4 (02:38→21:54)
[2019-05-06 08:10] LABS: Magnesium 1.9 mg/dL (1.6-2.3); Potassium 3.9 mmol/L (3.5-5.1)
[2019-05-06 08:15] LABS: Anisocytosis Slight; HCT 43.1 % (39.0-53.0); HGB 14.2 gm/dL (13.0-17.5); Hypochromasia Moderate; MCH 33.7 pg (25.0-35.0); MCV 102.1 fL (80.0-100.0); Macrocytosis Moderate; Mean Platelet Volume 7.3; Platelet Count 218 k/uL (150-450); RBC 4.22 m/uL (4.30-5.90); WBC 9.3 k/uL (3.8-10.6)
--- NOTE | 2019-05-06 08:50 | XR ---
EXAMINATION TYPE: XR chest 1V DATE OF EXAM: 05/06/2019 HISTORY: Shortness of breath. COMPARISON: None. TECHNIQUE: Single view of the chest is submitted. FINDINGS: There is cardiomegaly noted with pulmonary venous congestion without overt congestive failure at this time. Tiny amount of fluid within the right-sided minor fissure. Hilar and mediastinal structures are within normal limits. Degenerative changes are seen of the dorsal spine. IMPRESSION: 1. There is cardiomegaly noted with pulmonary venous congestion without overt congestive failure at this time. Tiny amount of fluid within the right-sided minor fissure.
[2019-05-06] MEDS: FUROSEMIDE 100 MG in SODIUM CHLORIDE 0.9% 90 ML IV SCH ×2 (08:51→19:58)
[2019-05-06] MEDS: SACUBITRIL/VALSARTAN 24 MG-26 MG TABLET PO SCH ×2 (08:52→21:52)
[2019-05-06] MEDS: ASPIRIN 81 MG PO SCH (08:52)
[2019-05-06] MEDS: SPIRONOLACTONE 25 MG TAB PO SCH ×2 (08:52→21:52)
[2019-05-06] MEDS ORDERED: POTASSIUM CHLORIDE ER 20 MEQ TAB.ER PO STA (11:56)
[2019-05-06] MEDS: CARVEDILOL 3.125 MG TAB PO SCH ×2 (12:23→18:55)
--- NOTE | 2019-05-06 12:28 | P.PN ---
Subjective Progress Note Date: 05/06/19 Principal diagnosis: SOB Doing well, no further sob. No cp. Swelling in the legs is down. Objective - Vital Signs Vital signs: Vital Signs Temp 97.2 F L 05/06/19 08:00 Pulse 84 05/06/19 08:00 Resp 20 05/06/19 08:00 BP 114/58 05/06/19 08:00 Pulse Ox 93 L 05/06/19 08:00 Intake & Output 05/05/19 05/06/19 05/06/19 18:59 06:59 18:59 Intake Total 500 650.167 590 Output Total 3075 Balance 500 -2424.833 590 Weight 80.5 kg 77.2 kg Intake: IV 40 105 10 .9 @ 5ml/hr 25 Furosemide 100 mg In 50 Sodium Chloride 0.9% 90 ml @ 10 MG/HR 10 mls/hr IV .Q10H [facility] Rx#: [id number] Invasive Line 1 40 30 10 Intake, IV Titration 85.167 100 Amount Furosemide 100 mg In 85.167 100 Sodium Chloride 0.9% 90 ml @ 10 MG/HR 10 mls/hr IV .Q10H [facility] Rx#: [id number] Oral 460 460 480 Output: Urine 3075 Other: # Voids 2 2 - Exam General: Ill appearing, no distress, appears at stated age Derm: warm, dry Head: atraumatic, normocephalic, symmetric Eyes: EOMI, no lid lag, anicteric sclera Mouth: no lip lesion, mucus membranes moist Cardiovascular: S1S2 reg, no murmur, positive posterior tibial pulse bilateral, Lungs: Rhonchi bilateral , no accessory muscle use Abdominal: soft, nontender to palpation, no guarding, no appreciable organomegaly Ext: no gross muscle atrophy, trace edema, no contractures Neuro: CN II-XI grossly intact, no focal neuro deficits Psych: Alert, oriented, appropriate affect - Labs CBC & Chem 7: 05/06/19 07:21 05/06/19 07:21 Labs: Abnormal Lab Results - Last 24 Hours (Table) 05/06/19 05/06/19 Range/Units 07:21 07:21 RBC 4.22 L (4.30-5.90) m/uL MCV 102.1 H (80.0-100.0) fL RDW 18.0 H (11.5-15.5) % BUN 44 H (9-20) mg/dL Creatinine 1.39 H (0.66-1.25) mg/dL Glucose 120 H (74-99) mg/dL Microbiology - Last 24 Hours (Table) 05/04/19 15:30 Blood Culture - Preliminary Blood No Growth after 24 hours Assessment and Plan Plan: Acute exacerbation of systolic congestive heart failure with ejection fraction of less than 20% and severe global hypokinesis with diastolic dysfunction and moderate to severe pulmonary hypertension -Was diuresed with lasix gtt and aldactone, now better -Will not start beta reynaldo secondary to acute exacerbation was no history of beta reynaldo use -Continue entresto -Discussed with cardiology -Telemetry, likely will need ischemic evaluation as well as a defibrillator which may be considered on an outpatient basis. Currently patient is adverse to defibrillator -Strict I's and O's -Daily weights KAREN Hold all diuretics Recheck Cr in am Transaminitis -Likely secondary to hepatic congestion -Liver ultrasound also shows possibility of some cirrhosis secondary to ascites but does not comment on echo-texture of the liver -Consider repeat outpatient ultrasound once fluid status is optimized -Avoidance of alcohol -Follow CMP -Hold statin 7 beat run of V. tach -Continue telemetry -Likely will need beta reynaldo/AICD -Cardiology recommendations History of coronary artery disease -Continue with aspirin. Hold statin secondary to elevated liver enzymes. 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
[2019-05-06] MEDS: DOCUSATE 100 MG CAP PO PRN (15:17)
--- NOTE | 2019-05-06 15:59 | PN ---
PROGRESS NOTE This patient is admitted with cardiomyopathy and congestive cardiac failure. He is feeling better. Patient has been diuresing fairly well. He has intermittent PVCs. The leg edema is significantly improved. Patient is tolerating Entresto well. The blood pressure is 100/63 mmHg. First and second heart sounds are heard. Lungs reveal a few basal rales. There is only trace leg edema. Patient's creatinine is 1.39. ASSESSMENT AND PLAN: Cardiomyopathy with biventricular failure. Patient is improving. We will decrease the dose of Lasix to 5 mg/hour. Coreg 3.125 mg b.i.d. is added. MMODL / IJN: [id number] /
[2019-05-06] MEDS ORDERED: SPIRONOLACTONE 25 MG TAB PO SCH (21:00)
[2019-05-07 06:36] LABS: Anisocytosis Slight; Basophils % (A) 0 %; Eosinophils # (A) 0.3 k/uL (0-0.7); Eosinophils % (A) 3 %; HGB 14.6 gm/dL (13.0-17.5); Hypochromasia Slight; Lymphocytes % (A) 11 %; MCH 32.6 pg (25.0-35.0); MCHC 32.5 g/dL (31.0-37.0); MCV 100.4 fL (80.0-100.0); Macrocytosis Moderate; Mean Platelet Volume 7.3; Monocytes # (A) 0.7 k/uL (0-1.0); Monocytes % (A) 8 %; Neutrophils # (A) 7.1 k/uL (1.3-7.7); Neutrophils % (A) 77 %; Platelet Count 226 k/uL (150-450); RBC 4.48 m/uL (4.30-5.90); RDW 17.8 % (11.5-15.5); WBC 9.3 k/uL (3.8-10.6)
[2019-05-07 06:40] LABS: Calcium 8.7 mg/dL (8.4-10.2); Phosphorus 4.3 mg/dL (2.5-4.5); Potassium 3.8 mmol/L (3.5-5.1)
[2019-05-07] MEDS: CARVEDILOL 3.125 MG TAB PO SCH ×2 (09:45→17:21)
[2019-05-07] MEDS: DOCUSATE 100 MG CAP PO PRN (09:49)
[2019-05-07] MEDS: ASPIRIN 81 MG PO SCH (09:49)
[2019-05-07] MEDS: HEPARIN SODIUM,PORCINE 5,000 UNIT/ML 1 ML VIAL SQ SCH (09:50)
[2019-05-07] MEDS: SPIRONOLACTONE 25 MG TAB PO SCH ×2 (09:54→12:02)
[2019-05-07] MEDS: SACUBITRIL/VALSARTAN 24 MG-26 MG TABLET PO SCH (09:54)
--- NOTE | 2019-05-07 10:21 | P.PN ---
Subjective Progress Note Date: 05/07/19 Principal diagnosis: SOB Doing well, no sob or cp. Objective - Vital Signs Vital signs: Vital Signs Temp 97 F L 05/07/19 00:00 Pulse 77 05/07/19 03:55 Resp 16 05/07/19 03:55 BP 87/55 05/07/19 03:46 Pulse Ox 93 L 05/07/19 03:46 Intake & Output 05/06/19 05/07/19 05/07/19 18:59 06:59 18:59 Intake Total 847.5 530 422.5 Output Total 1999 2099 Balance -1152.5 -1570 422.5 Weight 77.9 kg Intake: IV 30 130 .9 @ 5ml/hr 40 Furosemide 100 mg In 60 Sodium Chloride 0.9% 90 ml @ 5 MG/HR 5 mls/hr IV .Q20H [facility] Rx#:[id number] Invasive Line 1 30 30 Intake, IV Titration 137.5 62.5 Amount Furosemide 100 mg In 137.5 62.5 Sodium Chloride 0.9% 90 ml @ 5 MG/HR 5 mls/hr IV .Q20H [facility] Rx#:[id number] Oral 680 400 360 Output: Urine 1999 2099 Other: # Voids 1 - Exam General: Ill appearing, no distress, appears at stated age Derm: warm, dry Head: atraumatic, normocephalic, symmetric Eyes: EOMI, no lid lag, anicteric sclera Mouth: no lip lesion, mucus membranes moist Cardiovascular: S1S2 reg, no murmur, positive posterior tibial pulse bilateral, Lungs: Rhonchi bilateral , no accessory muscle use Abdominal: soft, nontender to palpation, no guarding, no appreciable organomegaly Ext: no gross muscle atrophy, trace edema, no contractures Neuro: CN II-XI grossly intact, no focal neuro deficits Psych: Alert, oriented, appropriate affect - Labs CBC & Chem 7: 05/07/19 05:55 05/07/19 05:55 Labs: Abnormal Lab Results - Last 24 Hours (Table) 05/07/19 05/07/19 Range/Units 05:55 05:55 MCV 100.4 H (80.0-100.0) fL RDW 17.8 H (11.5-15.5) % Carbon Dioxide 31 H (22-30) mmol/L BUN 51 H (9-20) mg/dL Creatinine 1.62 H (0.66-1.25) mg/dL Glucose 111 H (74-99) mg/dL Microbiology - Last 24 Hours (Table) 05/04/19 15:30 Blood Culture - Preliminary Blood No Growth after 48 hours Assessment and Plan Plan: Acute exacerbation of systolic congestive heart failure with ejection fraction of less than 20% and severe global hypokinesis with diastolic dysfunction and moderate to severe pulmonary hypertension -Was diuresed with lasix gtt and aldactone, now better -Started on beta reynaldo per cardio -Telemetry, likely will need ischemic evaluation as well as a defibrillator which may be considered on an outpatient basis. Currently patient is adverse to defibrillator -Strict I's and O's -Daily weights KAREN Hold all diuretics, hold entresco Recheck Cr in am Transaminitis -Likely secondary to hepatic congestion -Liver ultrasound also shows possibility of some cirrhosis secondary to ascites but does not comment on echo-texture of the liver -Consider repeat outpatient ultrasound once fluid status is optimized -Avoidance of alcohol -Follow CMP -Hold statin 7 beat run of V. tach -Continue telemetry -Started on coreg -Will need AICD -Cardiology recommendations History of coronary artery disease -Continue with aspirin. Hold statin secondary to elevated liver enzymes. 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
[2019-05-07 11:37] LABS: Cholesterol 121 mg/dL (<200); HDL Cholesterol 27 mg/dL (40-60); LDL Cholesterol,Calculated 77 mg/dL (0-99); Triglycerides 84 mg/dL (<150)
--- NOTE | 2019-05-07 12:46 | P.PN ---
Subjective This is a 75 showed male past medical history significant for heart failure, hypertension, dyslipidemia and chronic nicotine dependence. He does not follow regularly with a tool and die designer. He is seen and examined resting comfortably lying flat in bed in no acute distress. He is quite frustrated with this current course of this hospitalization. He has a history of noncompliance with previous medication and states that his noncompliance is secondary to high cost of medications. Currently maintained on carvedilol, Aldactone and Entr esto. Entresto and aldactone have been held secondary to hypotension. Blood pressure this morning 97/56 heart rate 76 afebrile maintaining oxygen saturation on room air. Laboratory data reviewed, WBC 9.3, hemoglobin 14.6, platelets 226, sodium 137, potassium 3.8, creatinine 1.62. Echocardiogram obtained on this admission reveals severe global hypokinesia with the LV function of less than 20%, grade 3 diastolic dysfunction, moderate mitral regurgitation, moderate tricuspid regurgitation and moderate to severe pulmonary hypertension with an RVSP of 63 mmHg. Case management has evaluated the cost entresto, this is not a covered medication under his current insurance policy. GENERAL: Well-appearing, well-nourished and in no acute distress. NECK: Supple without JVD or thyromegaly. LUNGS: Breath sounds clear to auscultation bilaterally. Respiration equal and unlabored. No wheezes, rales or rhonchi. HEART: Regular rate and rhythm with systolic ejection murmur at the left sternal border, no rubs or gallops. S1 and S2 heard. EXTREMITIES: Normal range of motion, trace non-pitting edema. No clubbing or cyanosis. Peripheral pulses intact. ASSESSMENT Ischemic cardiomyopathy, ejection fraction less than 20% Acute on chronic systolic heart failure Acute kidney injury Nonsustained monomorphic ventricular tachycardia History of coronary artery disease status post PCI over 10 years ago, exact details unavailable Hypertension Dyslipidemia Chronic nicotine dependence History of noncompliance PLAN Discontinue entresto, last dose was 05/06 at 0900. Initiate lisinopril 5 mg tomorrow morning if blood pressure tolerates. Continue coreg. Decrease aldactone to 25 mg daily. Further recommendations to follow based on clinical course. Lengthy discussion with the patient and his son-in-law regarding the importance of medication compliance. Nurse Practitioner note has been reviewed, I agree with a documented findings and plan of care. Patient was seen and examined. Objective - Vital Signs Vital signs: Vital Signs Temp 97.7 F 05/07/19 08:00 Pulse 76 05/07/19 08:00 Resp 16 05/07/19 08:00 BP 97/56 05/07/19 08:00 Pulse Ox 93 L 05/07/19 08:00 Intake & Output 05/06/19 05/07/19 05/07/19 18:59 06:59 18:59 Intake Total 847.5 530 432.5 Output Total 1999 2099 Balance -1152.5 -1570 432.5 Weight 77.9 kg Intake: IV 30 130 10 .9 @ 5ml/hr 40 Furosemide 100 mg In 60 Sodium Chloride 0.9% 90 ml @ 5 MG/HR 5 mls/hr IV .Q20H [facility] Rx#:[id number] Invasive Line 1 30 30 10 Intake, IV Titration 137.5 62.5 Amount Furosemide 100 mg In 137.5 62.5 Sodium Chloride 0.9% 90 ml @ 5 MG/HR 5 mls/hr IV .Q20H [facility] Rx#:[id number] Oral 680 400 360 Output: Urine 1999 2099 Other: # Voids 1 - Labs CBC & Chem 7: 05/07/19 05:55 05/07/19 05:55 Labs: Abnormal Lab Results - Last 24 Hours (Table) 05/07/19 05/07/19 Range/Units 05:55 05:55 MCV 100.4 H (80.0-100.0) fL RDW 17.8 H (11.5-15.5) % Carbon Dioxide 31 H (22-30) mmol/L BUN 51 H (9-20) mg/dL Creatinine 1.62 H (0.66-1.25) mg/dL Glucose 111 H (74-99) mg/dL Microbiology - Last 24 Hours (Table) 05/04/19 15:30 Blood Culture - Preliminary Blood No Growth after 48 hours
[2019-05-07] MEDS ORDERED: POTASSIUM CHLORIDE ER 20 MEQ TAB.ER PO STA (17:10)
[2019-05-08] MEDS: CARVEDILOL 3.125 MG TAB PO SCH ×2 (06:09→18:08)
[2019-05-08 06:26] LABS: Calcium 9.5 mg/dL (8.4-10.2); Potassium 5.1 mmol/L (3.5-5.1)
[2019-05-08] MEDS: ASPIRIN 81 MG PO SCH (08:03)
[2019-05-08] MEDS: SPIRONOLACTONE 25 MG TAB PO SCH (08:04)
[2019-05-08] MEDS ORDERED: METOPROLOL TARTRATE 25 MG TAB PO SCH (09:00)
[2019-05-08] MEDS ORDERED: LISINOPRIL 5 MG TAB PO SCH (09:00)
--- NOTE | 2019-05-08 10:12 | P.PN ---
Subjective This is a 75 showed male past medical history significant for heart failure, hypertension, dyslipidemia and chronic nicotine dependence. He does not follow regularly with a vocational nurse. He is seen and examined resting comfortably lying flat in bed in no acute distress. He is quite frustrated with this current course of this hospitalization. He has a history of noncompliance with previous medication and states that his noncompliance is secondary to high cost of medications. Currently maintained on carvedilol, Aldactone and Entr esto. Entresto and aldactone have been held secondary to hypotension. Blood pressure this morning 97/56 heart rate 76 afebrile maintaining oxygen saturation on room air. Laboratory data reviewed, WBC 9.3, hemoglobin 14.6, platelets 226, sodium 137, potassium 3.8, creatinine 1.62. Echocardiogram obtained on this admission reveals severe global hypokinesia with the LV function of less than 20%, grade 3 diastolic dysfunction, moderate mitral regurgitation, moderate tricuspid regurgitation and moderate to severe pulmonary hypertension with an RVSP of 63 mmHg. Case management has evaluated the cost entresto, this is not a covered medication under his current insurance policy. 05/08/2019 He is seen and examined laying flat in bed in no acute distress. He denies chest pain, shortness of breath, dizziness or palpitations. Blood pressure 102/68 heart rate 95. Laboratory data reviewed, sodium 138, potassium 5.1, creatinine 1.51. GENERAL: Well-appearing, well-nourished and in no acute distress. NECK: Supple without JVD or thyromegaly. LUNGS: Breath sounds clear to auscultation bilaterally. Respiration equal and unlabored. No wheezes, rales or rhonchi. HEART: Regular rate and rhythm with systolic ejection murmur at the left sternal border, no rubs or gallops. S1 and S2 heard. EXTREMITIES: Normal range of motion, trace non-pitting edema. No clubbing or cyanosis. Peripheral pulses intact. ASSESSMENT Ischemic cardiomyopathy, ejection fraction less than 20% Acute on chronic systolic heart failure Acute kidney injury Nonsustained monomorphic ventricular tachycardia History of coronary artery disease status post PCI over 10 years ago, exact details unavailable Hypertension Dyslipidemia Chronic nicotine dependence History of noncompliance PLAN Continue chloride, Aldactone and aspirin as previously ordered. Blood pressure would not tolerate for addition of RAFY/ARB. This can be managed as an outpatient. Clinically stable for discharge from cardiac perspective, follow-up in the office with Dr. Brunner upon discharge. Nurse Practitioner note has been reviewed, I agree with a documented findings and plan of care. Patient was seen and examined. Objective - Vital Signs Vital signs: Vital Signs Temp 97.8 F 05/08/19 07:55 Pulse 95 05/08/19 08:00 Resp 18 05/08/19 08:00 BP 102/68 05/08/19 07:55 Pulse Ox 97 05/08/19 07:55 Intake & Output 05/07/19 05/08/19 05/08/19 18:59 06:59 18:59 Intake Total 852.5 430 250 Output Total 300 Balance 552.5 430 250 Weight 79.3 kg Intake: IV 30 30 10 Invasive Line 1 30 30 10 Intake, IV Titration 62.5 Amount Furosemide 100 mg In 62.5 Sodium Chloride 0.9% 90 ml @ 5 MG/HR 5 mls/hr IV .Q20H [facility] Rx#:[id number] Oral 760 400 240 Output: Urine 300 Other: # Voids 2 - Labs CBC & Chem 7: 05/07/19 05:55 05/08/19 05:26 Labs: Abnormal Lab Results - Last 24 Hours (Table) 05/07/19 05/08/19 Range/Units 05:55 05:26 BUN 50 H (9-20) mg/dL Creatinine 1.51 H (0.66-1.25) mg/dL Glucose 104 H (74-99) mg/dL HDL Cholesterol 27 L (40-60) mg/dL Microbiology - Last 24 Hours (Table) 05/04/19 15:30 Blood Culture - Preliminary Blood No Growth after 72 hours
--- NOTE | 2019-05-08 12:34 | P.DS ---
Providers Date of admission: 05/04/19 17:34 Expected date of discharge: 05/08/19 Attending physician: Keysha Copeland DO Consults: 05/05/19 10:44 Consult Physician Routine Consulting Provider: Yoni Brunner Consult Reason/Comments: CHF Do you want consulting provider notified?: Yes Primary care physician: Stated None Hospital Course: 75-year-old male with history of hyperlipidemia, hypertension. history of congestive heart failure (patient reports most recent left ventricular ejection fraction a year ago was 15%), history of noncompliance, has not been on any medications, hx of CAD 10 years ago that was treated with angioplasty , no stent needed presented to the hospital because of several weeks history of progressively worsening shortness of breath and a cough. The cough has been dry. Shortness of breath have been occurring with minimal activity. Symptoms started after exposure to cold weather. He was previously treated with a course of antibiotics after a recent visit to the ER. 2 days prior to presentation he had an episode of near syncope and coughing spell along with urinary incontinence. He also noticed swelling of bilateral legs and his scrotum . Patient denies fever, no chills. No sick contacts. No orthopenea, PNDs or wheezing. Evaluation in the ED today revealed tachycardia, low oxygen sat, and anasarca . CXR showed cardiomegally but no fluid overload. he was started on diuretics and admitted for further care and management. Patient was kept on Lasix drip for diuresis. His fluid balance has been negative. His symptoms got better and that includes the leg swelling in the shortness of breath. He was diagnosed with acute exacerbation of combined congestive heart failure with ejection fraction of less than 20% and severe global hypokinesis with diastolic dysfunction and moderate to severe pulmonary hypertension based on echocardiogram findings. Aldactone, statin and Coreg were all added to his regimen. Patient was also started on until school as well. During the hospitalization his telemetry revealed a 7 beat run of V. tach. As above he was started on Coreg and he will be a good candidate for AICD placement. He was seen in consultation with cardiology service who recommended follow-up as an outpatient to arrange for all the procedures and the medications needed. His liver function tests were mildly elevated and that was thought to be secondary to hepatic congestion. Liver ultrasound also shows possibility of some cirrhosis secondary to ascites. In addition his kidney function worsened with diuresis with creatinine peak at 1.6. This improved next day with holding the diuretics. Currently patient is able to ambulate without difficulty. He is on room air. He will be discharged home in a stable condition. Follow up with a PCP and papier mache' molder was emphasized on him. Adherence to the patient was also emphasized. time for discharge 35 minutes. Patient Condition at Discharge: Stable Plan - Discharge Summary Discharge Rx Participant: No New Discharge Prescriptions: New Sacubitril/Valsartan [Entresto 24 mg-26 mg Tablet] 1 each PO BID #60 tablet Spironolactone [Aldactone] 25 mg PO DAILY #30 tab Carvedilol [Coreg] 3.125 mg PO BID-W/MEALS #60 tab Continue Aspirin EC [Ecotrin Low Dose] 81 mg PO DAILY Albuterol Sulfate [Proair Hfa] 1 - 2 puff INHALATION RT-Q4H PRN PRN Reason: Shortness Of Breath Albuterol Nebulized [Ventolin Nebulized] 2.5 mg INHALATION RT-QID PRN PRN Reason: Shortness Of Breath Atorvastatin [Lipitor] 20 mg PO DAILY Discharge Medication List Albuterol Nebulized [Ventolin Nebulized] 2.5 mg INHALATION RT-QID PRN 05/04/19 [History] Albuterol Sulfate [Proair Hfa] 1 - 2 puff INHALATION RT-Q4H PRN 05/04/19 [History] Aspirin EC [Ecotrin Low Dose] 81 mg PO DAILY 05/04/19 [History] Atorvastatin [Lipitor] 20 mg PO DAILY 05/04/19 [History] Sacubitril/Valsartan [Entresto 24 mg-26 mg Tablet] 1 each PO BID #60 tablet 05/05/19 [Rx] Carvedilol [Coreg] 3.125 mg PO BID-W/MEALS #60 tab 05/08/19 [Rx] Spironolactone [Aldactone] 25 mg PO DAILY #30 tab 05/08/19 [Rx] Follow up Appointment(s)/Referral(s): Luiz Kimble MD [Medical Doctor] - 05/13/19 10:00 am None,Stated [Primary Care Provider] - 1-2 days Activity/Diet/Wound Care/Special Instructions: Patient has appointment with Dr. Kimble's nurse practitioner on 05/13/19 @10 a.mGeovani Fitchstyas copay = $203 - first month filled with free 30 day coupon - filled at [employer]
[2019-05-08] MEDS ORDERED: FUROSEMIDE 10 MG/ML 2 ML VIAL IV ONE (16:30)
--- NOTE | 2019-05-08 17:24 | P.PN ---
Subjective Progress Note Date: 05/08/19 Principal diagnosis: SOB Patient was about to be discharged but right before he was about to go he had an episode of shortness of breath while going to the bathroom.. Discharge was held. He was placed on oxygen, currently feeling better. Objective - Vital Signs Vital signs: Vital Signs Temp 98.2 F 05/08/19 12:00 Pulse 84 05/08/19 16:00 Resp 16 05/08/19 16:00 BP 111/71 05/08/19 14:56 Pulse Ox 97 05/08/19 12:00 Intake & Output 05/07/19 05/08/19 05/08/19 18:59 06:59 18:59 Intake Total 852.5 430 690 Output Total 300 600 Balance 552.5 430 90 Weight 79.3 kg Intake: IV 30 30 20 Invasive Line 1 30 30 20 Intake, IV Titration 62.5 Amount Furosemide 100 mg In 62.5 Sodium Chloride 0.9% 90 ml @ 5 MG/HR 5 mls/hr IV .Q20H [facility] Rx#:[id number] Oral 760 400 470 Blood Product 200 Output: Urine 300 600 Other: # Voids 2 1 - Exam General: Ill appearing, no distress, appears at stated age Derm: warm, dry Head: atraumatic, normocephalic, symmetric Eyes: EOMI, no lid lag, anicteric sclera Mouth: no lip lesion, mucus membranes moist Cardiovascular: S1S2 reg, no murmur, positive posterior tibial pulse bilateral, Lungs: Rhonchi bilateral , no accessory muscle use Abdominal: soft, nontender to palpation, no guarding, no appreciable organomegaly Ext: no gross muscle atrophy, trace edema, no contractures Neuro: CN II-XI grossly intact, no focal neuro deficits Psych: Alert, oriented, appropriate affect - Labs CBC & Chem 7: 05/07/19 05:55 05/08/19 05:26 Labs: Abnormal Lab Results - Last 24 Hours (Table) 05/08/19 Range/Units 05:26 BUN 50 H (9-20) mg/dL Creatinine 1.51 H (0.66-1.25) mg/dL Glucose 104 H (74-99) mg/dL Microbiology - Last 24 Hours (Table) 05/04/19 15:30 Blood Culture - Preliminary Blood No Growth after 72 hours Assessment and Plan Plan: Acute exacerbation of systolic congestive heart failure with ejection fraction of less than 20% and severe global hypokinesis with diastolic dysfunction and moderate to severe pulmonary hypertension -Was diuresed with lasix gtt initially, now better -Started on beta reynaldo per cardio -We'll given 1 dose of Lasix today. Lasix was held due to renal failure. resume Aldactone. -Telemetry, likely will need ischemic evaluation as well as a defibrillator which may be considered on an outpatient basis. Currently patient is adverse to defibrillator -Strict I's and O's -Daily weights KAREN Holding lasix, hold entresco Recheck Cr in am Transaminitis -Likely secondary to hepatic congestion -Liver ultrasound also shows possibility of some cirrhosis secondary to ascites but does not comment on echo-texture of the liver -Consider repeat outpatient ultrasound once fluid status is optimized -Avoidance of alcohol -Follow CMP -Hold statin 7 beat run of V. tach -Continue telemetry -Started on coreg -Will need AICD -Cardiology recommendations History of coronary artery disease -Continue with aspirin. Hold statin secondary to elevated liver enzymes. Hypertension, currently controlled -Started on entresto, now holding DVT prophylaxis: heparin Discussed with: patient, nursing, Anticipated discharge date: [address]: home A total of 35 minutes was spent on the care of this complex patient more than 50% of the time was spent in counseling and care coordination.
[2019-05-09 03:42] VITALS: RESP 18
[2019-05-09] MEDS: CARVEDILOL 3.125 MG TAB PO SCH (06:15)
[2019-05-09] MEDS: ASPIRIN 81 MG PO SCH (10:14)
[2019-05-09] MEDS: SPIRONOLACTONE 25 MG TAB PO SCH (10:14)
[2019-05-09 11:44] VITALS: BP 91/67; PULSE 87; TEMP 98.2
--- NOTE | 2019-05-09 12:34 | P.PN ---
Subjective Progress Note Date: 05/09/19 This is a 75 year old male past medical history significant for nonischemic cardiomyopathy, diastolic congestiveheart failure, hypertension, dyslipidemia and chronic nicotine dependence. He does not follow regularly with a auto claim representative. presented to the hospital with symptoms of shortness of breath. patient was initially seen in consultation by Dr. VC Brunner. Patient's blood pressure over the weekend was quite low and for this reason his Entresto and Aldactone had been placed on hold. His morning the patient ambulated in the hallway 5 loops around, mildly short of breath but otherwise did quite well. His initial blood pressure this morning was 79 systolic, subsequent to his walk he was 92/60.patient is noted on the monitor today and over the weekend to have runs of nonsustained ventricular tachycardia on the monitor. It appears today that during his walk he had several episodes. Dr. Gallegos did speak with the patient at length regarding the need for AICD which the patient refuses at this time, he wants to speak with his primary care doctor as an outpatient regarding this. Dr. Gallegos also discussed with the patient a LifeVest because of the risk of sudden cardiac , patient refused that. He also spoke with the patient regarding starting him on amiodarone, patient also does not want that at this time either he wants to go home on current medications, he agrees follow-up in the office and discussed AICD as an outpatient.the patient's diuretics were even held yesterday because of hypotension and mildly abnormal renal function. We will put the patient on 20 mg of by mouth Lasix twice a day, decrease his dose of Coreg to 1.563 mg by mouth twice a day, continue Aldactone 25 mg daily along with baby aspirin. Patient is currently not on an RAFY inhibitor because of the hypotension. Objective - Vital Signs Vital signs: Vital Signs Temp 98.2 F 05/09/19 11:43 Pulse 87 05/09/19 11:44 Resp 18 05/09/19 11:44 BP 91/67 05/09/19 11:43 Pulse Ox 95 05/09/19 11:43 Intake & Output 05/08/19 05/09/19 05/09/19 18:59 06:59 18:59 Intake Total 710 20 200 Output Total 600 Balance 110 20 200 Weight 78.2 kg Intake: IV 40 20 Invasive Line 1 20 Invasive Line 2 20 20 Oral 470 200 Blood Product 200 Output: Urine 600 Other: # Voids 1 2 - Exam GENERAL: Well-appearing, well-nourished and in no acute distress. NECK: Supple without JVD or thyromegaly. LUNGS: Breath sounds clear to auscultation bilaterally. Respiration equal and unlabored. No wheezes, rales or rhonchi. HEART: Regular rate and rhythm with systolic ejection murmur at the left sternal border, no rubs or gallops. S1 and S2 heard. EXTREMITIES: Normal range of motion, trace non-pitting edema. No clubbing or cyanosis. Peripheral pulses intact. - Labs CBC & Chem 7: 05/07/19 05:55 05/08/19 05:26 Labs: Microbiology - Last 24 Hours (Table) 05/04/19 15:30 Blood Culture - Preliminary Blood No Growth after 96 hours Assessment and Plan Plan: ASSESSMENT AND PlAn #1Ischemic cardiomyopathy, ejection fraction less than 20% #2Acute on chronic systolic heart failure #3Acute kidney injury #4 runs ofNonsustained monomorphic ventricular tachycardia #5History of coronary artery disease status post PCI over 10 years ago, exact details unavailable #6Hypertension #7Dyslipidemia #8Chronic nicotine dependence #9History of noncompliance Plan We will put the issue on Lasix 20 mg one tablet by mouth twice a day, decrease the dose of Coreg, continue Aldactone and a baby aspirin. Patient has been educated and advised regarding initiating amiodarone, going home with LifeVest, versus AICD. At this time patient refuses to have any of those things done now, he is willing to follow-up in the office and discuss AICD as an outpatient. DNP note has been reviewed, I agree with a documented findings and plan of care. Patient was seen and examined.
--- NOTE | 2019-05-09 14:49 | P.DS ---
Providers Date of admission: 05/04/19 17:34 Expected date of discharge: 05/09/19 Attending physician: Keysha Copeland DO Consults: 05/05/19 10:44 Consult Physician Routine Consulting Provider: Yoni Brunner Consult Reason/Comments: CHF Do you want consulting provider notified?: Yes Primary care physician: Stated None Hospital Course: discharge diagnoses Acute on chronic combined systolic end-diastolic CHF exacerbation essential hypertension Nonsustained V. tach Ischemic cardiomyopathy History of coronary artery disease status post PCI over 10 years ago, exact details unavailable hyperlipidemia transaminitis Hospital course the patient is a 75-year-old male with a history of CHF, ischemic cardiomyopathy, medical noncompliance, history of CAD, essential hypertension, hyperlipidemia that presented to the ER with shortness of breath and cough and was admitted for acute systolic CHF exacerbation and started on IV Lasix drip, initial EKG showed a underlying left bundle block pattern. echocardiogram obtained during this hospitalization showed severe global hypokinesis with LV function of less than 20%, grade 3 diastolic, moderate mitral regurgitation moderate tricuspid regurgitation and moderate to severe pulmonary hypertension. during the hospitalization the patient's blood pressure was borderline and his interest O and Dr.: Were placed on hold, the patient was being considered for AICD placement given runs of nonsustained V. tach that occurred on telemetry over the weekend. The patient was counseled and discussed the need for LifeVest AICD placement and being on amiodarone and that the risks for sudden cardiac if the patient did not take his medications or suggestions and the patient continued to refuse any further therapies. Patient was discharged home on Lasix and Coreg and continued on Aldactone. The patient was discharged home in stable condition. this discharge process took approximately 35 minutes focused exam Cardiovascular: Regular rate and rhythm. Systolic ejection murmur left sternal border Patient Condition at Discharge: Fair Plan - Discharge Summary Discharge Rx Participant: No New Discharge Prescriptions: New Spironolactone [Aldactone] 25 mg PO DAILY #30 tab Carvedilol [Coreg] 1.563 mg PO BID-W/MEALS #60 dose Furosemide [Lasix] 20 mg PO BID@0900,1600 #60 tab Continue Aspirin EC [Ecotrin Low Dose] 81 mg PO DAILY Albuterol Sulfate [Proair Hfa] 1 - 2 puff INHALATION RT-Q4H PRN PRN Reason: Shortness Of Breath Albuterol Nebulized [Ventolin Nebulized] 2.5 mg INHALATION RT-QID PRN PRN Reason: Shortness Of Breath Atorvastatin [Lipitor] 20 mg PO DAILY Discharge Medication List Albuterol Nebulized [Ventolin Nebulized] 2.5 mg INHALATION RT-QID PRN 05/04/19 [History] Albuterol Sulfate [Proair Hfa] 1 - 2 puff INHALATION RT-Q4H PRN 05/04/19 [History] Aspirin EC [Ecotrin Low Dose] 81 mg PO DAILY 05/04/19 [History] Atorvastatin [Lipitor] 20 mg PO DAILY 05/04/19 [History] Carvedilol [Coreg] 1.563 mg PO BID-W/MEALS #60 dose 05/09/19 [Rx] Furosemide [Lasix] 20 mg PO BID@0900,1600 #60 tab 05/09/19 [Rx] Spironolactone [Aldactone] 25 mg PO DAILY #30 tab 05/09/19 [Rx] Follow up Appointment(s)/Referral(s): [facility] [NON-STAFF] - Luiz Kimble MD [Medical Doctor] - 05/13/19 10:00 am (Thursday) [facility], [NON-STAFF] - Yoni Brunner MD [STAFF PHYSICIAN] - 05/30/19 2:15 pm (Thursday Down [address]) Patient Instructions/Handouts: Furosemide (By mouth), Heart Failure (DC) Activity/Diet/Wound Care/Special Instructions: . Discharge Disposition: HOME WITH HOME HEALTH SERVICES
[2019-05-09] MEDS ORDERED: FUROSEMIDE 20 MG TAB PO SCH (16:00)
[2019-05-09 16:25] LABS: Glucose,Whole Blood 183 mg/dL (75-99)
[2019-05-09] MEDS ORDERED: CARVEDILOL 1.563 MG TAB PO SCH (17:30)
== END 2019-05-09 16:42 | disposition home health service (06) | DRG 292 ==
LOC: EDBD → EC 14:28 → 3SCARD 17:34
PROVIDERS: ADMIT Internal Medicine; ATTEND Internal Medicine
DX: I11.0 Hypertensive heart disease with heart failure (principal); I47.2 Ventricular tachycardia; N17.9 Acute kidney failure, unspecified; I50.43 Acute on chronic combined systolic (congestive) and diastolic (congestive) heart failure; I50.82 Biventricular heart failure; E78.5 Hyperlipidemia, unspecified; F17.200 Nicotine dependence, unspecified, uncomplicated; I08.1 Rheumatic disorders of both mitral and tricuspid valves; I25.10 Atherosclerotic heart disease of native coronary artery without angina pectoris; I25.2 Old myocardial infarction; I25.5 Ischemic cardiomyopathy; I27.20 Pulmonary hypertension, unspecified; I42.8 Other cardiomyopathies; I44.7 Left bundle-branch block, unspecified; Z79.82 Long term (current) use of aspirin; Z79.899 Other long term (current) drug therapy; Z91.19 Patient's noncompliance with other medical treatment and regimen; Z95.810 Presence of automatic (implantable) cardiac defibrillator; Z98.61 Coronary angioplasty status; K74.60 Unspecified cirrhosis of liver
CPT/HCPCS: 36415; 71045; 71046; 76700; 76705; 80048; 80053; 80061; 81001; 82553; 83735; 83880; 84100; 84484; 85025; 85027; 85379; 85610; 85730; 87040; 93005; 93306; 93970; 93976; 94640; 96361; 96374; 99285

== ENCOUNTER 2019-05-20 10:32 | Inpatient (IN) | payer MEDICARE ==
--- NOTE | 2019-05-20 11:20 | ED ---
General Adult HPI - General Chief complaint: Recheck/Abnormal Lab/Rx Stated complaint: pt states fluid on lungs Time Seen by Provider: 05/20/19 11:02 Source: patient, family, RN notes reviewed Mode of arrival: ambulatory Limitations: no limitations - History of Present Illness Initial comments: Patient is a pleasant 75-year-old male presenting to the emergency department with leg edema and dyspnea. Onset of symptoms was the past few days. Patient has been in the hospital several times with this recently. Patient states dyspnea does worsen with exertion. Patient states leg swelling has just recurred over the past couple of days. No leg pain. No fevers. Patient did go see his doctor today who recommended he come back to the hospital for int ravenous Lasix and possibly dobutamine. - Related Data Home Medications Medication Instructions Recorded Confirmed Albuterol Nebulized [Ventolin 2.5 mg INHALATION RT-QID PRN 05/04/19 05/04/19 Nebulized] Albuterol Sulfate [Proair Hfa] 1 - 2 puff INHALATION RT-Q4H PRN 05/04/19 05/04/19 Aspirin EC [Ecotrin Low Dose] 81 mg PO DAILY 05/04/19 05/04/19 Atorvastatin [Lipitor] 20 mg PO DAILY 05/04/19 05/04/19 Previous Rx's Medication Instructions Recorded Carvedilol [Coreg] 1.563 mg PO BID-W/MEALS #60 dose 05/09/19 Furosemide [Lasix] 20 mg PO BID@0900,1600 #60 tab 05/09/19 Spironolactone [Aldactone] 25 mg PO DAILY #30 tab 05/09/19 Allergies Allergy/AdvReac Type Severity Reaction Status Date / Time No Known Allergies Allergy Verified 05/04/19 17:34 Review of Systems ROS Statement: Those systems with pertinent positive or pertinent negative responses have been documented in the HPI. ROS Other: All systems not noted in ROS Statement are negative. Constitutional: Denies: fever Eyes: Denies: eye pain ENT: Denies: ear pain Respiratory: Reports: as per HPI, dyspnea Cardiovascular: Reports: edema. Denies: chest pain Endocrine: Denies: fatigue Gastrointestinal: Denies: abdominal pain Genitourinary: Denies: dysuria Musculoskeletal: Denies: back pain Skin: Denies: rash Neurological: Denies: weakness Past Medical History Past Medical History: Heart Failure, Hyperlipidemia, Hypertension Additional Past Medical History / Comment(s): Pt denies ever having hypertensio n. History of Any Multi-Drug Resistant Organisms: None Reported Past Surgical History: Appendectomy Past Psychological History: No Psychological Hx Reported Smoking Status: Light tobacco smoker Past Alcohol Use History: None Reported Past Drug Use History: None Reported - Past Family History Mother History Unknown: Yes Father History Unknown: Yes family Family Medical History: No Reported History General Exam Limitations: no limitations General appearance: alert, in no apparent distress Head exam: Present: normocephalic Eye exam: Present: normal appearance Neck exam: Present: normal inspection Respiratory exam: Present: normal lung sounds bilaterally Cardiovascular Exam: Present: regular rate, normal rhythm, normal heart sounds Expanded Peripheral pulses: 2+: Radial (R), Radial (L), Dorsalis Pedis (R), Dorsalis Pedis (L) GI/Abdominal exam: Present: soft. Absent: tenderness Extremities exam: Present: pedal edema. Absent: calf tenderness Neurological exam: Present: alert Psychiatric exam: Present: normal affect, normal mood Skin exam: Present: normal color Course Vital Signs 05/20/19 05/20/19 05/20/19 10:54 11:49 12:34 Temperature 97.3 F L Pulse Rate 89 89 90 Respiratory 18 18 18 Rate Blood Pressure 115/73 107/85 111/78 O2 Sat by Pulse 93 L 97 97 Oximetry - Reevaluation(s) Reevaluation #1: 05/20/19 11:21 Case was discussed with Dr. Gallegos who will consult on patient and is in agreement that dobutamine can be started through peripheral line. Medical Decision Making - Medical Decision Making Case also discussed with Dr. Guillermo, who will admit covering for Dr. Kimble. Patient and family updated. - Lab Data Result diagrams: 05/20/19 11:35 05/20/19 11:35 Lab Results 05/20/19 05/20/19 05/20/19 Range/Units 11:35 11:35 11:35 WBC 6.8 (3.8-10.6) k/uL RBC 4.62 (4.30-5.90) m/uL Hgb 14.5 (13.0-17.5) gm/dL Hct 46.0 (39.0-53.0) % MCV 99.5 (80.0-100.0) fL MCH 31.4 (25.0-35.0) pg MCHC 31.6 (31.0-37.0) g/dL RDW 17.6 H (11.5-15.5) % Plt Count 218 (150-450) k/uL Neutrophils % 82 % Lymphocytes % 8 % Monocytes % 6 % Eosinophils % 3 % Basophils % 0 % Neutrophils # 5.6 (1.3-7.7) k/uL Lymphocytes # 0.5 L (1.0-4.8) k/uL Monocytes # 0.4 (0-1.0) k/uL Eosinophils # 0.2 (0-0.7) k/uL Basophils # 0.0 (0-0.2) k/uL Anisocytosis Slight Macrocytosis Slight PT (9.0-12.0) sec INR (<1.2) APTT (22.0-30.0) sec Sodium 140 (137-145) mmol/L Potassium 4.8 (3.5-5.1) mmol/L Chloride 108 H (98-107) mmol/L Carbon Dioxide 22 (22-30) mmol/L Anion Gap 10 mmol/L BUN 31 H (9-20) mg/dL Creatinine 1.14 (0.66-1.25) mg/dL Est GFR (CKD-EPI)AfAm 72 (>60 ml/min/1.73 sqM) Est GFR (CKD-EPI)NonAf 63 (>60 ml/min/1.73 sqM) Glucose 116 H (74-99) mg/dL Calcium 9.5 (8.4-10.2) mg/dL Total Bilirubin 1.9 H (0.2-1.3) mg/dL AST 81 H (17-59) U/L ALT 88 H (4-49) U/L Alkaline Phosphatase 320 H (38-126) U/L Troponin I (0.000-0.034) ng/mL NT-Pro-B Natriuret Pep 4610 pg/mL Total Protein 7.7 (6.3-8.2) g/dL Albumin 4.2 (3.5-5.0) g/dL 05/20/19 05/20/19 Range/Units 11:35 11:35 WBC (3.8-10.6) k/uL RBC (4.30-5.90) m/uL Hgb (13.0-17.5) gm/dL Hct (39.0-53.0) % MCV (80.0-100.0) fL MCH (25.0-35.0) pg MCHC (31.0-37.0) g/dL RDW (11.5-15.5) % Plt Count (150-450) k/uL Neutrophils % % Lymphocytes % % Monocytes % % Eosinophils % % Basophils % % Neutrophils # (1.3-7.7) k/uL Lymphocytes # (1.0-4.8) k/uL Monocytes # (0-1.0) k/uL Eosinophils # (0-0.7) k/uL Basophils # (0-0.2) k/uL Anisocytosis Macrocytosis PT 12.1 H (9.0-12.0) sec INR 1.2 H (<1.2) APTT 25.4 (22.0-30.0) sec Sodium (137-145) mmol/L Potassium (3.5-5.1) mmol/L Chloride (98-107) mmol/L Carbon Dioxide (22-30) mmol/L Anion Gap mmol/L BUN (9-20) mg/dL Creatinine (0.66-1.25) mg/dL Est GFR (CKD-EPI)AfAm (>60 ml/min/1.73 sqM) Est GFR (CKD-EPI)NonAf (>60 ml/min/1.73 sqM) Glucose (74-99) mg/dL Calcium (8.4-10.2) mg/dL Total Bilirubin (0.2-1.3) mg/dL AST (17-59) U/L ALT (4-49) U/L Alkaline Phosphatase (38-126) U/L Troponin I 0.015 (0.000-0.034) ng/mL NT-Pro-B Natriuret Pep pg/mL Total Protein (6.3-8.2) g/dL Albumin (3.5-5.0) g/dL - Radiology Data Radiology results: image reviewed (Chest x-ray shows cardiomegaly. Right posterior infiltrate correlate for atelectasis versus atypical pulmonary edema) Critical Care Time Critical Care Time: Yes Total Critical Care Time: 33 Disposition Clinical Impression: Pulmonary edema Disposition: ADMITTED IP TO THIS HOSP Condition: Serious Is patient prescribed a controlled substance at d/c from ED?: No Referrals: Luiz Kimble MD [Primary Care Provider] - 1-2 days Decision Time: 13:04
[2019-05-20] MEDS ORDERED: FUROSEMIDE 10 MG/ML 4 ML VIAL IV STA (11:21)
[2019-05-20 11:47] LABS: Anisocytosis Slight; Basophils % (A) 0 %; Eosinophils # (A) 0.2 k/uL (0-0.7); Eosinophils % (A) 3 %; HGB 14.5 gm/dL (13.0-17.5); Lymphocytes # (A) 0.5 k/uL (1.0-4.8); Lymphocytes % (A) 8 %; MCH 31.4 pg (25.0-35.0); MCHC 31.6 g/dL (31.0-37.0); MCV 99.5 fL (80.0-100.0); Macrocytosis Slight; Mean Platelet Volume 7.2; Monocytes # (A) 0.4 k/uL (0-1.0); Monocytes % (A) 6 %; Neutrophils # (A) 5.6 k/uL (1.3-7.7); Neutrophils % (A) 82 %; Platelet Count 218 k/uL (150-450); RBC 4.62 m/uL (4.30-5.90); RDW 17.6 % (11.5-15.5); WBC 6.8 k/uL (3.8-10.6)
[2019-05-20 11:55] LABS: Albumin 4.2 g/dL (3.5-5.0); Calcium 9.5 mg/dL (8.4-10.2); Potassium 4.8 mmol/L (3.5-5.1); Total Bilirubin 1.9 mg/dL (0.2-1.3); Total Protein 7.7 g/dL (6.3-8.2)
[2019-05-20 12:01] LABS: INR 1.2 (<1.2); Partial Thromboplastin Time 25.4 sec (22.0-30.0); Prothrombin Time 12.1 sec (9.0-12.0)
--- NOTE | 2019-05-20 12:08 | XR ---
EXAMINATION TYPE: XR chest 2V DATE OF EXAM: 05/20/2019 COMPARISON: 05/06/2019 INDICATION: Difficulty breathing leg swelling short of breath TECHNIQUE: Frontal and lateral views of the chest are obtained. FINDINGS: The heart size is moderately prominent. The pulmonary vasculature is normal. Small posterior right lower lobe infiltrate is present.. IMPRESSION: 1. Posterior right lower lobe infiltrate. Correlate for atelectasis or atypical pulmonary edema. 2. Moderate cardiomegaly.
[2019-05-20] MEDS: DOBUTamine DRIP 500 MG in DEXTROSE/WATER 1 250ML.BAG IV SCH (12:30)
[2019-05-20] MEDS ORDERED: ALBUTEROL NEBULIZED 2.5 MG/3 ML INHALATION PRN (14:52)
[2019-05-20] MEDS ORDERED: INFLUENZA VACCINE (6 MOS+) 60 MCG/0.5 ML SYRINGE IM ONE (16:04)
[2019-05-20 17:46] LABS: Potassium 3.7 mmol/L (3.5-5.1)
[2019-05-20] MEDS: CARVEDILOL 3.125 MG TAB PO SCH (18:07)
[2019-05-20] MEDS ORDERED: POTASSIUM CHLORIDE ER 20 MEQ TAB.ER PO STA (18:38)
[2019-05-20] MEDS: FUROSEMIDE 10 MG/ML 4 ML VIAL IV SCH (20:23)
--- NOTE | 2019-05-20 22:56 | P.HPIM ---
History of Present Illness H&P Date: 05/20/19 75 years old male patient of Dr. Kimble ( just had his first [employer] INSPECT[employer] visit last thursday ) with past medical history of acute on chronic systolic and diastolic CHF with ejection fraction of 20%, ischemic cardiomyopathy, history of coronary artery disease it is post-PCI 10 years ago, hypertension, hyperlipidemia, nonsustained V. tach hyperlipidemia: Since last admitted on 05/05 until 05/09 for acute CHF exacerbation. Patient was noted to have global hypokinesis of the left ventricular function with an EF of less than 20% grade 3 diastolic dysfunction, moderate mitral regurgitation moderate tricuspid regurgitation and moderate to severe pulmonary hypertension. Patient was also documented to have multiple beats of nonsustained V. tach during the admission and was recommended to get AICD placement. Patient continued to refuse the recommendations by button spindler and was discharged home on Lasix and Coreg and Aldactone. Patient has the history of non compliane and knows of his CHF for the past 10 years but refused to take medications and didnot see his providers until recently. Patient was seen by Dr. Kennedy in the office today and was found to be volume overloaded. He was sent to the ER with clear instructions to be placed on dobutamine drip and Lasix. In ER, patient was found to be febrile blood pressure 1:15/73 with oxygen saturation 93% on room air. On evaluation of blood, Patient's CBC is unremarkable INR 1.2 BUN 31 creatinine 1.14 glucose 116 liver functions elevated AST 81 ALT 88 alkaline phosphatase 320 which appears to be chronic BNP 4210. Patient admitted to be diursed, continue dobutamine drip as per cardiology Review of Systems Constitutional: Denies chills, Denies fever, Denies lethargy, Denies malaise, Denies poor appetite, Denies weakness, Denies weight loss Eyes: denies decreased vision, denies diplopia, denies discharge, denies pain Ears: deny: decreased hearing Ears, nose, mouth and throat: Denies dental pain, Denies headache, Denies nasal discharge, Denies nose pain Cardiovascular: Denies chest pain, endorses decreased exercise tolerance, endorses edema, Denies high blood pressure, Denies irregular heart beat, Denies palpitations, endorses paroxysmal nocturnal dyspnea, Denies rapid heart beat, endorses shortness of breath Respiratory: Denies congestion, Denies cough, Denies cough with sputum, endorses dyspnea, Denies home oxygen, Denies wheezing Gastrointestinal: Denies abdominal pain, Denies change in bowel habits, Denies coffee ground emesis, Denies early satiety, Denies excessive gas, Denies heartburn, Denies hematemesis, Denies hematochezia, Denies loss of appetite, Denies nausea, Denies vomiting Genitourinary: Denies dysuria, Denies flank pain, Denies kidney stones, Denies menorrhagia, Denies urgency, Denies urinary frequency Musculoskeletal: Denies gait dysfunction, Denies limitation of motion, Denies morning stiffness, Denies muscle cramps Integumentary: Denies rash, Denies wounds, Denies brittle nails, Denies change in hair/nails, Denies darkening of skin Neurological: Denies balance difficulties, Denies change in speech, Denies double vision, Denies gait dysfunction, Denies loss of vision, Denies motor disturbance, Denies numbness, Denies paralysis, Denies paresthesias, Denies seizures Psychiatric: Denies anxiety, Denies depression Endocrine: Denies excessive sweating, Denies excessive thirst, Denies high blood sugars, Denies palpitations Hematologic/Lymphatic: Denies easy bruising, Denies lymphadenopathy Past Medical History Past Medical History: Heart Failure, Hyperlipidemia, Hypertension Additional Past Medical History / Comment(s): Pt denies ever having hypertension. History of Any Multi-Drug Resistant Organisms: None Reported Past Surgical History: Appendectomy Past Psychological History: No Psychological Hx Reported Smoking Status: Light tobacco smoker Past Alcohol Use History: None Reported Past Drug Use History: None Reported - Past Family History Mother History Unknown: Yes Father History Unknown: Yes family Family Medical History: No Reported History Medications and Allergies Home Medications Medication Instructions Recorded Confirmed Type Albuterol Nebulized [Ventolin 2.5 mg INHALATION RT-QID PRN 05/04/19 05/20/19 History Nebulized] Albuterol Sulfate [Proair Hfa] 1 - 2 puff INHALATION RT-Q4H PRN 05/04/19 05/20/19 History Aspirin EC [Ecotrin Low Dose] 81 mg PO DAILY 05/04/19 05/20/19 History Atorvastatin [Lipitor] 20 mg PO DAILY 05/04/19 05/20/19 History Furosemide [Lasix] 20 mg PO BID@0900,1600 #60 tab 05/09/19 05/20/19 Rx Spironolactone [Aldactone] 25 mg PO DAILY #30 tab 05/09/19 05/20/19 Rx Carvedilol [Coreg] 1.563 mg PO BID 05/20/19 05/20/19 History Allergies Allergy/AdvReac Type Severity Reaction Status Date / Time No Known Allergies Allergy Verified 05/20/19 13:28 Physical Exam Vitals: Vital Signs Temp Pulse Resp BP Pulse Ox 05/20/19 10:54 97.3 F L 89 18 115/73 93 L Intake and Output 05/19/19 05/20/19 05/20/19 22:59 06:59 14:59 Other: Weight 77.111 kg - Constitutional General appearance: cooperative, no acute distress, obese - EENT Eyes: anicteric sclerae, PERRLA, normal appearance ENT: hearing grossly normal - Neck Neck: no lymphadenopathy, normal ROM, no other, no rigidity, no stridor, no thyromegaly - Respiratory Respiratory: bilateral: CTA, negative: diminished, dullness, rales, rhonchi - Cardiovascular Rhythm: regular Heart sounds: normal: S1, S2 Abnormal Heart Sounds: no systolic murmur, no diastolic murmur, no rub, S4 gallop, 2 + pitting edema - Gastrointestinal General gastrointestinal: normal bowel sounds, soft - Integumentary Integumentary: no rash - Neurologic Neurologic: CNII-XII intact - Musculoskeletal Musculoskeletal: gait normal, strength equal bilaterally - Psychiatric Psychiatric: A&O x's 3, appropriate affect Results CBC & Chem 7: 05/20/19 11:35 05/20/19 17:21 Labs: Abnormal Lab Results - Last 24 Hours (Table) 05/20/19 Range/Units 11:35 RDW 17.6 H (11.5-15.5) % Lymphocytes # 0.5 L (1.0-4.8) k/uL Thrombosis Risk Factor Assmnt - DVT/VTE Prophylaxis DVT/VTE Prophylaxis: Pharmacologic Prophylaxis ordered Assessment and Plan Plan: #1 acute systolic and diastolic CHF exacerbation continue Lasix 40 IV twice a day daily weights. Input and outputs. Dobutamine drip at 5 g per KG per minute. #2 nonsustained V. tach continue telemetry patient is a candidate for AICD placement which he has refused in the past. Follow-up with cardiology #3 hypertension blood pressure on the lower side. Continue Coreg 1.563twice a day, Lasix 40 twice a day, Aldactone 25 mg by mouth daily, lisinopril 5 mg twice a day hold blood pressure medication if systolic less than 90 #4 valvular heart disease moderate mitral and tricuspid regurgitation continue Lasix 40 IV twice a day continue lisinopril 5 mg daily, continue Aldactone 25 mg by mouth daily, Coreg 1.3-5 twice daily #5 hyperlipidemia continue atorvastatin 20 mg by mouth daily #6 transaminitis likely secondary to hypoperfusion. Obtain ultrasound of the abdomen if the liver enzymes get worse #7 history of coronary artery disease status post-PCI continue aspirin, atorvastatin, Coreg, Lasix 40 twice a day, spironolactone 25 by mouth daily #8 ischemic cardiomyopathy ejection fraction last reported to be 20%. Patient's blood pressure on the lower side continue dobutamine drip. If able to tolerate patient can be started back on Coreg, Lasix, spironolactone. #9 CODE STATUS full code #10 DVT prophylaxis with heparin 5000 every 12 #11 disposition patient need at least 1-2 inpatient nights for stabilization
[2019-05-21] MEDS: CARVEDILOL 3.125 MG TAB PO SCH ×2 (07:00→17:12)
[2019-05-21 08:04] LABS: Calcium 9.5 mg/dL (8.4-10.2); Magnesium 1.9 mg/dL (1.6-2.3); Potassium 4.2 mmol/L (3.5-5.1)
[2019-05-21] MEDS: ATORVASTATIN 20 MG TAB PO SCH (08:33)
[2019-05-21] MEDS: ASPIRIN 81 MG PO SCH (08:34)
[2019-05-21] MEDS: DOBUTamine DRIP 500 MG in DEXTROSE/WATER 1 250ML.BAG IV SCH (08:34)
[2019-05-21] MEDS: FUROSEMIDE 10 MG/ML 4 ML VIAL IV SCH ×2 (08:34→21:29)
[2019-05-21] MEDS: SPIRONOLACTONE 25 MG TAB PO SCH (08:34)
[2019-05-21 11:10] VITALS: BMI 25.8
--- NOTE | 2019-05-21 11:21 | P.PN ---
Subjective Progress Note Date: 05/21/19 This is a pleasant 75-year-old gentleman who follows with Dr. Lyon in the office. He has known history of coronary artery disease with prior history of angioplasty 10 years ago, impaired LV systolic function, hyperlipidemia, hypertension, he was over at cardiology's office yesterday, patient has noticed a significant amount of weight gain and was experiencing some shortness of breath, subsequently he was recommended to come to the hospital for admission. He did have an echo performed in April of this year which revealed an ejection fraction of less than 20%, moderate mitral regurg, moderate tricuspid regurgitation and small generalized pericardial effusion noted. He was admitted to the hospital by Dr. Lyon, initiated on IV dobutamine. diuresed very well through the night last night although his weight is not reflective of this, it appears that the patient has put out over 4000 mL since 3:00 yesterday afternoon. The edema in his lower extremities has almost completely resolved. Blood pressure 106/60 with a heart rate in the 80s, 94% on room air. Sodium 139, potassium 4.2, BUN 25, creatinine 1.2. Magnesium 1.9. Objective - Vital Signs Vital signs: Vital Signs Temp 98.0 F 05/21/19 04:00 Pulse 84 05/21/19 08:27 Resp 20 05/21/19 08:27 BP 106/67 05/21/19 08:27 Pulse Ox 94 L 05/21/19 08:27 Intake & Output 05/20/19 05/21/19 05/21/19 18:59 06:59 18:59 Intake Total 240 232.111 Output Total 2300 1900 Balance -2300 -1660 232.111 Weight 77.111 kg 77.111 kg Intake: Intake, IV Titration 232.111 Amount DOBUTamine DRIP 500 mg In 232.111 Dextrose/Water 1 250ml. bag @ 5 MCG/KG/MIN 11.567 mls/hr IV .[id number] [facility] Rx#:[id number] Oral 240 Output: Urine 2300 1900 Other: Voiding Method Urinal Urinal # Voids 6 - Exam PHYSICAL EXAMINATION: GENERAL: 75 stroke gentleman in no acute distress at the time of my examination HEENT: Head is atraumatic, normocephalic. Pupils equal, round. Sclera anicteric. Conjunctiva are clear. Mucous membranes of the mouth are moist. Neck is supple. There is no elevated jugular venous pressure. No carotid bruit is heard. HEART EXAMINATION: Heart S1 and S2 with soft systolic murmur is heard CHEST EXAMINATION: Lungs are clear with mild diminished air entry to the bases ABDOMEN: Soft, nontender. Bowel sounds are heard. No organomegaly noted. EXTREMITIES: 2+ peripheral pulses with no evidence of peripheral edema and no calf tenderness noted. NEUROLOGIC patient is awake, alert and oriented 3 . . - Labs CBC & Chem 7: 05/20/19 11:35 05/21/19 07:05 Labs: Abnormal Lab Results - Last 24 Hours (Table) 05/20/19 05/20/19 05/20/19 Range/Units 11:35 11:35 11:35 RDW 17.6 H (11.5-15.5) % Lymphocytes # 0.5 L (1.0-4.8) k/uL PT 12.1 H (9.0-12.0) sec INR 1.2 H (<1.2) Chloride 108 H (98-107) mmol/L BUN 31 H (9-20) mg/dL Glucose 116 H (74-99) mg/dL Total Bilirubin 1.9 H (0.2-1.3) mg/dL AST 81 H (17-59) U/L ALT 88 H (4-49) U/L Alkaline Phosphatase 320 H (38-126) U/L 05/21/19 Range/Units 07:05 RDW (11.5-15.5) % Lymphocytes # (1.0-4.8) k/uL PT (9.0-12.0) sec INR (<1.2) Chloride (98-107) mmol/L BUN 25 H (9-20) mg/dL Glucose (74-99) mg/dL Total Bilirubin (0.2-1.3) mg/dL AST (17-59) U/L ALT (4-49) U/L Alkaline Phosphatase (38-126) U/L Assessment and Plan Plan: Assessment and plan #1 systolic congestive heart failure acute on chronic #2 ischemic cardio myopathy with documented ejection fraction of less than 20% #3 coronary artery disease with prior PCI #4 hypertension #5 hyperlipidemia Plan We'll discontinue the dobutamine drip today, continue IV Lasix for one more day, continue Coreg and Aldactone. We will attempt a small dose of RAFY inhibitor. Patient had been initiated on Entresto, but became severely hypotensive on it. Continue to monitor intake and output along with daily weights and daily lytes BUN and creatinine. DNP note has been reviewed, I agree with a documented findings and plan of care. Patient was seen and examined.
[2019-05-21 12:22] LABS: Glucose,Whole Blood 115 mg/dL (75-99)
--- NOTE | 2019-05-21 13:57 | P.PN ---
Subjective Progress Note Date: 05/21/19 75 years old male patient of Dr. Kimble ( just had his first BLOCK PLACER visit last thursday ) with past medical history of acute on chronic systolic and diastolic CHF with ejection fraction of 20%, ischemic cardiomyopathy, history of coronary artery disease it is post-PCI 10 years ago, hypertension, hyperlipidemia, nonsustained V. tach hyperlipidemia: Since last admitted on 05/05 until 05/09 for acute CHF exacerbation. Patient was noted to have global hypokinesis of the left ventricular function with an EF of less than 20% grade 3 diastolic dysfunction, moderate mitral regurgitation moderate tricuspid regurgitation and moderate to severe pulmonary hypertension. Patient was also documented to have multiple beats of nonsustained V. tach during the admission and was recommended to get AICD placement. Patient continued to refuse the recommendations by dye stand loader and was discharged home on Lasix and Coreg and Aldactone. Patient has the history of non compliane and knows of his CHF for the past 10 years but refused to take medications and didnot see his providers until recently. Patient was seen by Dr. Kennedy in the office today and was found to be volume overloaded. He was sent to the ER with clear instructions to be placed on dobutamine drip and Lasix. In ER, patient was found to be febrile blood pressure 1:15/73 with oxygen saturation 93% on room air. On evaluation of blood, Patient's CBC is unremarkable INR 1.2 BUN 31 creatinine 1.14 glucose 116 liver functions elevated AST 81 ALT 88 alkaline phosphatase 320 which appears to be chronic BNP 4210. Patient admitted to be diursed, continue dobutamine drip as per cardiology 05/21: Patient developed leg cramps during the night and potassium was replaced. He is currently on dobutamine drip. He states his chest pain is completely gone . He states his breathing is perfect. He denies any cough or sputum production. Lower extremity edema is improved. He states he was up urinating much during the night. Patient has been seen by cardiology with plan to discontinue the [place] a mean drip and continue IV Lasix for 1 more day, continue Coreg and Aldactone. Small RAFY inhibitor to be added. Review of Systems Constitutional: Denies chills, Denies fever, Denies lethargy, Denies malaise, Denies poor appetite, Denies weakness, Denies weight loss Eyes: denies decreased vision, denies diplopia, denies discharge, denies pain Ears: deny: decreased hearing Ears, nose, mouth and throat: Denies dental pain, Denies headache, Denies nasal discharge, Denies nose pain Cardiovascular: Denies chest pain, denies decreased exercise tolerance, denies edema, Denies high blood pressure, Denies irregular heart beat, Denies palpitations, endorses paroxysmal nocturnal dyspnea, Denies rapid heart beat, denies shortness of breath Respiratory: Denies congestion, Denies cough, Denies cough with sputum, endorses dyspnea, Denies home oxygen, Denies wheezing Gastrointestinal: Denies abdominal pain, Denies change in bowel habits, Denies coffee ground emesis, Denies early satiety, Denies excessive gas, Denies heartburn, Denies hematemesis, Denies hematochezia, Denies loss of appetite, Denies nausea, Denies vomiting Genitourinary: Denies dysuria, Denies flank pain, Denies kidney stones, Denies menorrhagia, Denies urgency, Denies urinary frequency Musculoskeletal: Denies gait dysfunction, Denies limitation of motion, Denies morning stiffness, Denies muscle cramps Integumentary: Denies rash, Denies wounds, Denies brittle nails, Denies change in hair/nails, Denies darkening of skin Neurological: Denies balance difficulties, Denies change in speech, Denies double vision, Denies gait dysfunction, Denies loss of vision, Denies motor disturbance, Denies numbness, Denies paralysis, Denies paresthesias, Denies seizures Psychiatric: Denies anxiety, Denies depression Endocrine: Denies excessive sweating, Denies excessive thirst, Denies high blood sugars, Denies palpitations Hematologic/Lymphatic: Denies easy bruising, Denies lymphadenopathy Objective - Vital Signs Vital signs: Vital Signs Temp 98.0 F 05/21/19 04:00 Pulse 84 05/21/19 08:27 Resp 20 05/21/19 08:27 BP 106/67 05/21/19 08:27 Pulse Ox 94 L 05/21/19 08:27 Intake & Output 05/20/19 05/21/19 05/21/19 18:59 06:59 18:59 Intake Total 240 232.111 Output Total 2300 1900 Balance -230 -166 232.111 Weight 77.111 kg Intake: Intake, IV Titration 232.111 Amount DOBUTamine DRIP 500 mg In 232.111 Dextrose/Water 1 250ml. bag @ 5 MCG/KG/MIN 11.567 mls/hr IV .[id number] [facility] Rx#:[id number] Oral 240 Output: Urine 2300 1900 Other: Voiding Method Urinal Urinal # Voids 6 - Exam - Constitutional General appearance: cooperative, no acute distress, obese, resting in bed - EENT Eyes: anicteric sclerae, PERRLA, normal appearance ENT: hearing grossly normal - Neck Neck: no lymphadenopathy, normal ROM, no other, no rigidity, no stridor, no thyromegaly - Respiratory Respiratory: bilateral: CTA, negative: diminished, dullness, rales, rhonchi - Cardiovascular Rhythm: regular Heart sounds: normal: S1, S2 Abnormal Heart Sounds: no systolic murmur, no diastolic murmur, no rub, S4 gallop, 2 + pitting edema - Gastrointestinal General gastrointestinal: normal bowel sounds, soft - Integumentary Integumentary: no rash - Neurologic Neurologic: CNII-XII intact - Musculoskeletal Musculoskeletal: gait normal, strength equal bilaterally - Psychiatric Psychiatric: A&O x's 3, appropriate affect - Labs CBC & Chem 7: 05/20/19 11:35 05/21/19 07:05 Labs: Abnormal Lab Results - Last 24 Hours (Table) 05/20/19 05/20/19 05/20/19 Range/Units 11:35 11:35 11:35 RDW 17.6 H (11.5-15.5) % Lymphocytes # 0.5 L (1.0-4.8) k/uL PT 12.1 H (9.0-12.0) sec INR 1.2 H (<1.2) Chloride 108 H (98-107) mmol/L BUN 31 H (9-20) mg/dL Glucose 116 H (74-99) mg/dL Total Bilirubin 1.9 H (0.2-1.3) mg/dL AST 81 H (17-59) U/L ALT 88 H (4-49) U/L Alkaline Phosphatase 320 H (38-126) U/L 05/21/19 Range/Units 07:05 RDW (11.5-15.5) % Lymphocytes # (1.0-4.8) k/uL PT (9.0-12.0) sec INR (<1.2) Chloride (98-107) mmol/L BUN 25 H (9-20) mg/dL Glucose (74-99) mg/dL Total Bilirubin (0.2-1.3) mg/dL AST (17-59) U/L ALT (4-49) U/L Alkaline Phosphatase (38-126) U/L Assessment and Plan Plan: #1 acute systolic and diastolic CHF exacerbation continue Lasix 40 IV twice a day daily weights. Input and outputs. Dobutamine drip to be discontinued. #2 nonsustained V. tach continue telemetry patient is a candidate for AICD placement which he has refused in the past. Follow-up with cardiology #3 hypertension blood pressure on the lower side. Continue Coreg 1.563 twice a day, Lasix 40 twice a day, Aldactone 25 mg by mouth daily #4 valvular heart disease moderate mitral and tricuspid regurgitation continue Lasix 40 IV twice a day off lisinopril 5 mg daily, continue Aldactone 25 mg by mouth daily, Coreg 1.3-5 twice daily #5 hyperlipidemia continue atorvastatin 20 mg by mouth daily #6 transaminitis likely secondary to hypoperfusion. Obtain ultrasound of the abdomen if the liver enzymes get worse #7 history of coronary artery disease status post-PCI continue aspirin, atorvastatin, Coreg, Lasix 40 twice a day, spironolactone 25 by mouth daily #8 ischemic cardiomyopathy ejection fraction last reported to be 20%. Patient's blood pressure on the lower side, discontinue dobutamine drip. Continue A ldactone 25 mg daily and Coreg spironolactone. #9 CODE STATUS full code #10 DVT prophylaxis with heparin 5000 every 12 Discharge plan: Home on Thursday Impression and plan of care have been directed as dictated by the signing physician. Elle Cramer nurse practitioner acting as scribe for signing physician.
[2019-05-21 21:01] LABS: Glucose,Whole Blood 106 mg/dL (75-99)
[2019-05-21] MEDS: HEPARIN SODIUM,PORCINE 5,000 UNIT/ML 1 ML VIAL SQ SCH (21:30)
[2019-05-22] MEDS: CARVEDILOL 3.125 MG TAB PO SCH (07:07)
[2019-05-22] MEDS: ATORVASTATIN 20 MG TAB PO SCH (08:40)
[2019-05-22] MEDS: SPIRONOLACTONE 25 MG TAB PO SCH (08:40)
[2019-05-22] MEDS: HEPARIN SODIUM,PORCINE 5,000 UNIT/ML 1 ML VIAL SQ SCH (08:41)
[2019-05-22] MEDS: FUROSEMIDE 10 MG/ML 4 ML VIAL IV SCH (08:41)
[2019-05-22] MEDS: ASPIRIN 81 MG PO SCH (08:41)
[2019-05-22 08:58] VITALS: RESP 20
[2019-05-22] MEDS ORDERED: LISINOPRIL 2.5 MG TAB PO SCH (11:15)
--- NOTE | 2019-05-22 11:34 | P.PN ---
Subjective Progress Note Date: 05/22/19 This is a pleasant 75-year-old gentleman who follows with Dr. Lyon in the office. He has known history of coronary artery disease with prior history of angioplasty 10 years ago, impaired LV systolic function, hyperlipidemia, hypertension, he was over at cardiology's office yesterday, patient has noticed a significant amount of weight gain and was experiencing some shortness of breath, subsequently he was recommended to come to the hospital for admission. He did have an echo performed in April of this year which revealed an ejection fraction of less than 20%, moderate mitral regurg, moderate tricuspid regurgitation and small generalized pericardial effusion noted. He was admitted to the hospital by Dr. Lyon, initiated on IV dobutamine. diuresed very well through the night last night although his weight is not reflective of this, it appears that the patient has put out over 4000 mL since 3:00 yesterday afternoon. The edema in his lower extremities has almost completely resolved. Blood pressure 106/60 with a heart rate in the 80s, 94% on room air. Sodium 139, potassium 4.2, BUN 25, creatinine 1.2. Magnesium 1.9. 05/22/2019 Patient seen and examined this morning, diuresed well through the night last night, breathing is significantly improved overall. Blood pressure 120/60 with a heart rate in the 70s, 95% on room air. Labs are pending. We will start the patient on a low-dose RAFY inhibitor today, continue to monitor for 24 hours. IV Lasix will be discontinued and patient will be started on oral diuretics. Objective - Vital Signs Vital signs: Vital Signs Temp 97.8 F 05/22/19 08:00 Pulse 88 05/22/19 08:00 Resp 20 05/22/19 08:00 BP 103/67 05/22/19 08:00 Pulse Ox 95 05/22/19 08:00 Intake & Output 05/21/19 05/22/19 05/22/19 18:59 06:59 18:59 Intake Total 324.591 240 Balance 324.591 240 Weight 77.111 kg 72.5 kg Intake: IV 92.48 DOBUTamine DRIP 500 mg In 92.48 Dextrose/Water 1 250ml. bag @ 5 MCG/KG/MIN 11.567 mls/hr IV .[id number] [facility] Rx#:[id number] Intake, IV Titration 232.111 Amount DOBUTamine DRIP 500 mg In 232.111 Dextrose/Water 1 250ml. bag @ 5 MCG/KG/MIN 11.567 mls/hr IV .[id number] [facility] Rx#:[id number] Oral 240 Other: Voiding Method Urinal - Exam PHYSICAL EXAMINATION: GENERAL: 75 stroke gentleman in no acute distress at the time of my examination HEENT: Head is atraumatic, normocephalic. Pupils equal, round. Sclera anicteric. Conjunctiva are clear. Mucous membranes of the mouth are moist. Neck is supple. There is no elevated jugular venous pressure. No carotid bruit is heard. HEART EXAMINATION: Heart S1 and S2 with soft systolic murmur is heard CHEST EXAMINATION: Lungs are clear to auscultation ABDOMEN: Soft, nontender. Bowel sounds are heard. No organomegaly noted. EXTREMITIES: 2+ peripheral pulses with no evidence of peripheral edema and no calf tenderness noted. NEUROLOGIC patient is awake, alert and oriented 3 . . - Labs CBC & Chem 7: 05/20/19 11:35 05/21/19 07:05 Labs: Abnormal Lab Results - Last 24 Hours (Table) 05/21/19 05/21/19 Range/Units 12:20 21:00 POC Glucose (mg/dL) 115 H 106 H (75-99) mg/dL Assessment and Plan Plan: Assessment and plan #1 systolic congestive heart failure acute on chronic #2 ischemic cardio myopathy with documented ejection fraction of less than 20% #3 coronary artery disease with prior PCI #4 hypertension #5 hyperlipidemia Plan We'll discontinue the IV Lasix today and start the patient on oral diuretics. Add a small dose of RAFY inhibitor to the medication regime. Continue to monitor the patient for 24 hours. Check lytes BUN and creatinine today and daily DNP note has been reviewed, I agree with a documented findings and plan of care. Patient was seen and examined.
[2019-05-22 11:43] VITALS: BP 130/62; PULSE 91; TEMP 96.9
[2019-05-22 12:14] LABS: Calcium 9.9 mg/dL (8.4-10.2); Potassium 4.5 mmol/L (3.5-5.1)
[2019-05-22] MEDS ORDERED: LOSARTAN 25 MG TAB PO SCH (12:45)
--- NOTE | 2019-05-22 15:00 | P.DS ---
Providers Date of admission: 05/20/19 13:05 Expected date of discharge: 05/22/19 Attending physician: Navi Blue MD Consults: 05/20/19 11:22 Consult Physician Urgent Consulting Provider: Akosua Gallegos Consult Reason/Comments: heart failure Do you want consulting provider notified?: Already Contacted [facility] Course: 75 years old male patient of Dr. 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 tach hyperlipidemia: Since last admitted on 05/05 until 05/09 for acute CHF exacerbation. Patient was noted to have global hypokinesis of the left ventricular function with an EF of less than 20% grade 3 diastolic dysfunction, moderate mitral regurgitation moderate tricuspid regurgitation and moderate to severe pulmonary hypertension. Patient was also documented to have multiple beats of nonsustained V. tach during the admission and was recommended to get AICD placement. Patient continued to refuse the recommendations by rib puller and was discharged home on Lasix and Coreg and Aldactone. Patient has the history of non compliane and knows of his CHF for the past 10 years but refused to take medications and didnot see his providers until recently. Patient was seen by Dr. Kennedy in the office today and was found to be volume overloaded. He was sent to the ER with clear instructions to be placed on dobutamine drip and Lasix. In ER, patient was found to be febrile blood pressure 1:15/73 with oxygen saturation 93% on room air. On evaluation of blood, Patient's CBC is unre markable INR 1.2 BUN 31 creatinine 1.14 glucose 116 liver functions elevated AST 81 ALT 88 alkaline phosphatase 320 which appears to be chronic BNP 4210. Patient admitted to be diursed, continue dobutamine drip as per cardiology 05/21: Patient developed leg cramps during the night and potassium was replaced. He is currently on dobutamine drip. He states his chest pain is completely gone. He states his breathing is perfect. He denies any cough or sputum production. Lower extremity edema is improved. He states he was up urinating much during the night. Patient has been seen by cardiology with plan to discontinue the [place] a mean drip and continue IV Lasix for 1 more day, continue Coreg and Aldactone. Small RAFY inhibitor to be added. 05/22: The patient was not started on RAFY inhibitor yesterday by cardiology as starting him on losartan for home. His blood pressure this morning is 130/62. Heart rate 91, pulse ox 98% on room air, afebrile. A repeat lab work reveals BUN of 30 creatinine 1.32. Patient has been cleared by Dr. Bailon for discharge home today. Patient will be discharged home in stable condition. Discharge diagnoses: #1 acute systolic and diastolic CHF exacerbation #2 nonsustained V. tach #3 hypertension #4 valvular heart disease moderate mitral and tricuspid regurgitation #5 hyperlipidemia #6 transaminitis likely secondary to hypoperfusion. #7 history of coronary artery disease status post-PCI #8 ischemic cardiomyopathy ejection fraction last reported to be 20%. Discharge plan: Home on Thursday Impression and plan of care have been directed as dictated by the signing physician. Elle Cramer nurse practitioner acting as scribe for signing physician. Patient Condition at Discharge: Good Plan - Discharge Summary Discharge Rx Participant: No New Discharge Prescriptions: New Losartan [Cozaar] 25 mg PO DAILY tab Continue Aspirin EC [Ecotrin Low Dose] 81 mg PO DAILY Albuterol Sulfate [Proair Hfa] 1 - 2 puff INHALATION RT-Q4H PRN PRN Reason: Shortness Of Breath Albuterol Nebulized [Ventolin Nebulized] 2.5 mg INHALATION RT-QID PRN PRN Reason: Shortness Of Breath Atorvastatin [Lipitor] 20 mg PO DAILY Spironolactone [Aldactone] 25 mg PO DAILY #30 tab Carvedilol [Coreg] 1.563 mg PO BID Changed Furosemide [Lasix] 40 mg PO BID@0900,1600 #120 tab Discharge Medication List Albuterol Nebulized [Ventolin Nebulized] 2.5 mg INHALATION RT-QID PRN 05/04/19 [History] Albuterol Sulfate [Proair Hfa] 1 - 2 puff INHALATION RT-Q4H PRN 05/04/19 [History] Aspirin EC [Ecotrin Low Dose] 81 mg PO DAILY 05/04/19 [History] Atorvastatin [Lipitor] 20 mg PO DAILY 05/04/19 [History] Spironolactone [Aldactone] 25 mg PO DAILY #30 tab 05/09/19 [Rx] Carvedilol [Coreg] 1.563 mg PO BID 05/20/19 [History] Furosemide [Lasix] 40 mg PO BID@0900,1600 #120 tab 05/22/19 [Rx] Losartan [Cozaar] 25 mg PO DAILY tab 05/22/19 [Rx] Follow up Appointment(s)/Referral(s): [facility] [Provider Group] - 1 Week (please call office when open to make follow up appointment) Luiz Kimble MD [Primary Care Provider] - 1 Week (please call office when open to make follow up appointment) Patient Instructions/Handouts: Losartan (By mouth) Discharge Disposition: HOME SELF-CARE
[2019-05-22] MEDS ORDERED: FUROSEMIDE 20 MG TAB PO SCH (16:00)
== END 2019-05-22 14:40 | disposition home or self-care (01) | DRG 292 ==
LOC: EC 10:32 → 3SCARD 13:05
PROVIDERS: ADMIT Internal Medicine; ATTEND Internal Medicine
DX: I11.0 Hypertensive heart disease with heart failure (principal); I47.2 Ventricular tachycardia; I50.43 Acute on chronic combined systolic (congestive) and diastolic (congestive) heart failure; I27.20 Pulmonary hypertension, unspecified; E78.5 Hyperlipidemia, unspecified; F17.290 Nicotine dependence, other tobacco product, uncomplicated; I08.1 Rheumatic disorders of both mitral and tricuspid valves; I25.10 Atherosclerotic heart disease of native coronary artery without angina pectoris; I25.5 Ischemic cardiomyopathy; R25.2 Cramp and spasm; R74.0 Nonspecific elevation of levels of transaminase and lactic acid dehydrogenase [LDH]; E66.9 Obesity, unspecified; Z68.24 Body mass index [BMI] 24.0-24.9, adult; Z79.82 Long term (current) use of aspirin; Z79.899 Other long term (current) drug therapy; Z98.61 Coronary angioplasty status
CPT/HCPCS: 36415; 71046; 80048; 80053; 83735; 83880; 84132; 84484; 85025; 85610; 85730; 90686; 93005; 96365; 96366; 96375; 99291

== ENCOUNTER → 2019-06-13 | Outpatient (CLI) | payer MEDICARE ==
[2019-06-13 13:15] LABS: Anisocytosis Slight; HCT 50.9 % (39.0-53.0); HGB 16.6 gm/dL (13.0-17.5); MCH 31.5 pg (25.0-35.0); MCHC 32.6 g/dL (31.0-37.0); MCV 96.8 fL (80.0-100.0); Mean Platelet Volume 7.3; Platelet Count 209 k/uL (150-450); RBC 5.25 m/uL (4.30-5.90); RDW 16.3 % (11.5-15.5); WBC 7.1 k/uL (3.8-10.6)
[2019-06-13 13:28] LABS: Potassium 4.8 mmol/L (3.5-5.1)
== END | disposition home or self-care (01) ==
LOC: LABPAT 12:06
PROVIDERS: ATTEND Internal Medicine Clinical Cardiac Electrophysiology
DX: Z01.812 Encounter for preprocedural laboratory examination (principal); I25.10 Atherosclerotic heart disease of native coronary artery without angina pectoris; I25.5 Ischemic cardiomyopathy
CPT/HCPCS: 36415; 80051; 82565; 82947; 84520; 85027

== ENCOUNTER 2019-06-21 14:27 | Inpatient (IN) | payer MEDICARE ==
[2019-06-20 12:29] VITALS: BMI 24.1
[~2019-06-21 14:27] MED LIST: DEXAMETHASONE SOD PHOSPHATE 10 MG/ML 1 ML VIAL IV ONE; HYDROmorphone 0.5 MG/0.5 ML SYRINGE IVP PRN; MIDAZOLAM 2 MG/2 ML VIAL IV PRN; ONDANSETRON 4 MG/2 ML VIAL IVP ONE; SODIUM CHLORIDE 0.9% 1,000 ML IV SCH
[2019-06-21] MEDS ORDERED: ceFAZolin 1,000 MG in SODIUM CHLORIDE 0.9% IRRIGATIO 250 ML IRRIGATION ONE (14:30)
[2019-06-21] MEDS ORDERED: SODIUM CHLORIDE 0.9% 1,000 ML IV ONE (14:45)
[2019-06-21] MEDS ORDERED: LIDOCAINE URO-JET JELLY 2% 5 ML KIT ONE (16:19)
[2019-06-21] MEDS ORDERED: PROPOFOL 10 MG/ML 20 ML VIAL IV ONE (16:45)
[2019-06-21] MEDS ORDERED: PHENYLEPHRINE-0.9% NACL SYG 1 MG/10 ML SYRINGE ONE (16:45)
[2019-06-21] MEDS ORDERED: MIDAZOLAM 2 MG/2 ML VIAL ONE (16:45)
[2019-06-21] MEDS ORDERED: fentaNYL (PF) 50 MCG/ML 2 ML AMP ONE (16:45)
[2019-06-21] MEDS ORDERED: FUROSEMIDE 10 MG/ML 2 ML VIAL ONE (16:45)
[2019-06-21] MEDS ORDERED: LIDOCAINE 1% INJ 10MG/ML (20 ML MDV) ONE (17:13)
[2019-06-21] MEDS ORDERED: IOPAMIDOL-370 50ML BTL INJ ONE ×2 (17:19→18:00)
[2019-06-21] MEDS ORDERED: LIDOCAINE 1% INJ 10MG/ML (20 ML MDV) SQ ONE (17:30)
[2019-06-21] MEDS ORDERED: HYDROcodone/APAP 5-325MG 1 EACH TAB PO PRN (19:15)
--- NOTE | 2019-06-21 19:22 | P.PRLE ---
RE: Rajeev Peck Dear Immarysol Rajeev underwent successful implantation of a biventricular ICD for management of severe heart failure secondary to severe systolic dysfunction with underlying first-degree AV block and left bundle branch block and a QRS width of greater than 170 ms His medications remain unchanged and hopefully this helps with his heart failure management Thank you for entrusting me with the care of the patient Warm regards Sincerely Carlton Lyon
[2019-06-21] MEDS ORDERED: ACETAMINOPHEN IV (For NPO) 1,000 MG in EMPTY BAG 1 BAG IVPB ONE (19:30)
--- NOTE | 2019-06-21 19:31 | P.PCN ---
Preoperative Diagnosis: Left upper extremity venogram Prior to starting the by what ICD 15 mL of dye was injected in the left upper extremity. Cine fluoroscopy was performed and a patent left axillary, left subclavian and left innominate veins are noted
[2019-06-21] MEDS: LACTATED RINGERS 1,000 ML IV SCH (20:17)
[2019-06-21] MEDS: SODIUM CHLORIDE 0.9% 1,000 ML IV SCH ×2 (20:18→23:45)
[2019-06-21] MEDS: CARVEDILOL 1.563 MG TAB PO SCH (20:46)
[2019-06-21] MEDS: SPIRONOLACTONE 25 MG TAB PO SCH (20:46)
--- NOTE | 2019-06-22 05:54 | CE ---
CARDIAC ELECTROPHYSIOLOGY REPORT This is a 75-year-old male patient with severe cardiomyopathy, severe LV dysfunction, severely reduced left ventricular ejection fraction, first degree AV block, left bundle branch block and class III CHF with recent hospitalizations for heart failure management. Patient was brought to the EP lab in a fasting state. Written informed consent was obtained prior to the procedure. Mahan catheter was placed for IV Lasix administration through the procedure. The patient was able supine comfortably prior to the procedure. The left pectoral area was prepped and draped as per protocol and 1% lidocaine was used for local anesthesia. IV antibiotics were administered. A 4 cm incision was made parallel to the deltopectoral groove, about 1.5 cm medial to it. The incision was carried down to the level of the pectoralis muscle and the subfascial pocket was made. Hemostasis was assured. The left axillary vein was accessed at 3 separate points under fluoroscopy and via appropriately-sized introducer sheaths 3 leads were positioned. The atrial lead was a [employer] model #[id number], 52 cm in length and serial #[id number]. This was screwed in the right atrial appendage. P waves were 4.5 mV, pacing impedance 450 ohms, pacing threshold 0.625 V at 0.5 milliseconds. Ten volt test was negative. The RV lead was a single coil ICD lead, [employer] model #[id number], 58 cm in length and serial #[id number]. R-waves 11.6 mV, pacing impedance 650 ohms and pacing threshold 0.5 V at 0.5 milliseconds. Ten volt test is negative. The LV lead was positioned in the lateral vein after coronary sinus venogram. This was a [employer] model #1458Q, 86 cm in length and serial #[id number].. Pacing impedance 730 ohms, pacing threshold 0.5 V at 0.5 millisecond. Excellent thresholds are noted between electrode 2 and 3. Ten volt is negative. All 3 leads were secured to the underlying pectoralis fascia after removal of the sheaths. The leads were connected to the generator ([employer] model #JK7619- 40Q serial #[id number]. The leads and generator were then placed in subfascial pocket. The wound was closed in 3 layers and dressed per protocol. DFT testing was deferred at this point. The device was then programmed to DDD at 50 bpm with AV sync on with an LV offset of 50 milliseconds. MADIT-RIT programming with appropriate antitachycardia pacing, cardioversion, and defibrillation were programmed. The patient tolerated the procedure well without any acute complications. RESULTS: Successful biventricular ICD implantation for severe congestive heart failure with underlying chronic systolic dysfunction, which is severe, chronic despite medical treatment with repeat hospitalizations, first-degree AV block and a wide QRS of 170 milliseconds of a left bundle branch block morphology. PLAN: Continue current medications. MMODL / IJN: [id number] /
[2019-06-22] MEDS: LACTATED RINGERS 1,000 ML IV SCH (06:38)
--- NOTE | 2019-06-22 07:50 | P.DS ---
Providers Attending physician: Carlton Lyon Primary care physician: [facility] Course: Patient is doing very well. He is resting comfortably in bed. He has no symptoms no chest discomfort he is not short of breath The ICD site is healing well is no hematoma Breath sounds are clear no rhonchi no crackles Normal heart sounds normal S1 normal S2 no murmurs Abdomen soft Extremities are warm, no edema Blood pressure 110/74 mmHg pulse rate in the 80s and afebrile Impression Severe ischemic cardiomyopathy with severe heart failure, despite medical treatment Status post biventricular ICD implantation with LV lead placed in the lateral LV vein LV offset 50 ms Plan continue current heart failure medications device interrogation today discharge home after chest x-ray and completion of IV antibiotics Follow up in the device clinic within one week Plan - Discharge Summary Discharge Rx Participant: No New Discharge Prescriptions: Continue Aspirin EC [Ecotrin Low Dose] 81 mg PO DAILY Albuterol Sulfate [Proair Hfa] 1 - 2 puff INHALATION RT-Q4H PRN PRN Reason: Shortness Of Breath Albuterol Nebulized [Ventolin Nebulized] 2.5 mg INHALATION RT-QID PRN PRN Reason: Shortness Of Breath Atorvastatin [Lipitor] 20 mg PO DAILY Carvedilol [Coreg] 1.563 mg PO BID Furosemide [Lasix] 40 mg PO BID@0900,1600 #120 tab Losartan Potassium [Cozaar] 25 mg PO DAILY Spironolactone [Aldactone] 25 mg PO BID Discharge Medication List Albuterol Nebulized [Ventolin Nebulized] 2.5 mg INHALATION RT-QID PRN 05/04/19 [History] Albuterol Sulfate [Proair Hfa] 1 - 2 puff INHALATION RT-Q4H PRN 05/04/19 [History] Aspirin EC [Ecotrin Low Dose] 81 mg PO DAILY 05/04/19 [History] Atorvastatin [Lipitor] 20 mg PO DAILY 05/04/19 [History] Carvedilol [Coreg] 1.563 mg PO BID 05/20/19 [History] Furosemide [Lasix] 40 mg PO BID@0900,1600 #120 tab 05/22/19 [Rx] Losartan Potassium [Cozaar] 25 mg PO DAILY 06/20/19 [History] Spironolactone [Aldactone] 25 mg PO BID 06/20/19 [History] Follow up Appointment(s)/Referral(s): Carlton Lyon MD [STAFF PHYSICIAN] - 1 Week (Device clinic follow-up within 5-7 days Follow-up with Dr. Lyon/Sabra Villagomez/Donna Mata in 3-4 months) Activity/Diet/Wound Care/Special Instructions: PATIENT EDUCATION MATERIAL Instructions following a heart rhythm device implant. 1. Keep dressing DRY for 5 DAYS. You may cover the area with Saran or Cling Wrap, prior to a shower. 2. The dressing will be removed in the Device Clinic at [facility]. Absorbable sutures were used to close the wound. 3. Avoid raising the left arm above the shoulder level. 4 week restriction 4. Avoid arm movements, like backscratching, rubbing the head, or pulling on a cord. 4 weeks restriction 5. Gentle range of motion movements of the shoulder, closest to the incision should be performed to avoid a frozen shoulder. (Pendulum exercises of the shoulder) 6. The opposite arm may be used freely. 7. Avoid driving for 7 days. 8. Avoid activities such as golfing, swimming, weed whacking, lifting more than 10 pounds weight, bowling, gymnastics and weight training/lifting. (6 weeks re striction) 9. Activities such as wood chopping with an axe, pull-ups in the gymnasium, power lifting, arc-welding, being close to home induction cooktops will always be a problem. 10. Arm sling is only a reminder not to raise the arm above the head. You do not need to keep the arm completely immobilized. Your free to move the arm and use it and for normal activities. In case of any problems, please call [facility], Patric Qureshi, @ [phone], Attention: Device Clinic Device clinic follow-up in 5 days Follow-up with primary venetian blind maker in 2-3 months Discharge Disposition: HOME SELF-CARE
[2019-06-22] MEDS: CARVEDILOL 1.563 MG TAB PO SCH ×2 (08:07→17:02)
[2019-06-22] MEDS: SPIRONOLACTONE 25 MG TAB PO SCH ×2 (08:07→19:43)
[2019-06-22] MEDS: ATORVASTATIN 20 MG TAB PO SCH (08:07)
[2019-06-22] MEDS: ASPIRIN 81 MG PO SCH (08:08)
[2019-06-22] MEDS: FUROSEMIDE 20 MG TAB PO SCH ×2 (08:08→17:03)
[2019-06-22] MEDS: LOSARTAN 25 MG TAB PO SCH (08:08)
[2019-06-22] MEDS: ACETAMINOPHEN TAB 325 MG TAB PO PRN (08:08)
--- NOTE | 2019-06-22 08:45 | XR ---
EXAMINATION TYPE: XR chest 2V DATE OF EXAM: 06/22/2019 COMPARISON: 05/20/2019 HISTORY: Shortness of breath TECHNIQUE: Frontal and lateral views of the chest are obtained. FINDINGS: Scattered senescent parenchymal changes noted. Hyperinflation compatible with COPD. Pacer device is i n place with distal leads within the right ventricle and right atrium respectively. No pneumothorax s een. No evidence for infiltrate. No evidence for atelectasis. Heart size is stable. Mediastinal structures are stable and grossly unremarkable. No evidence for hilar prominence. Degenerative changes dorsal spine. IMPRESSION: 1. No evidence for acute pulmonary disease.
[2019-06-22] MEDS ORDERED: ALPRAZolam 0.5 MG TAB PO PRN (20:17)
[2019-06-22] MEDS: SODIUM CHLORIDE 0.9% 1,000 ML IV SCH (23:05)
[2019-06-23] MEDS ORDERED: ceFAZolin 1,000 MG in SODIUM CHLORIDE 0.9% IRRIGATIO 250 ML IRRIGATION ONE (07:07)
[2019-06-23] MEDS: LACTATED RINGERS 1,000 ML IV SCH (07:53)
[2019-06-23] MEDS: SODIUM CHLORIDE 0.9% 1,000 ML IV SCH ×3 (07:53→16:16)
[2019-06-23] MEDS: SPIRONOLACTONE 25 MG TAB PO SCH ×2 (08:03→20:23)
[2019-06-23] MEDS: FUROSEMIDE 20 MG TAB PO SCH ×2 (08:03→17:38)
[2019-06-23] MEDS: LOSARTAN 25 MG TAB PO SCH (08:03)
[2019-06-23] MEDS: ATORVASTATIN 20 MG TAB PO SCH (08:03)
[2019-06-23] MEDS: ASPIRIN 81 MG PO SCH (08:03)
[2019-06-23] MEDS: CARVEDILOL 1.563 MG TAB PO SCH ×2 (08:03→17:38)
[2019-06-23] MEDS ORDERED: VANCOMYCIN 1,000 MG in SODIUM CHLORIDE 0.9% 250 ML IVPB ONE (09:00)
[2019-06-23] MEDS ORDERED: fentaNYL (PF) 50 MCG/ML 2 ML AMP ONE (13:13)
[2019-06-23] MEDS ORDERED: MIDAZOLAM 2 MG/2 ML VIAL ONE (13:13)
[2019-06-23] MEDS ORDERED: IV FLUID CONTINUATION 950 ML IV ONE (13:13)
[2019-06-23] MEDS ORDERED: PROPOFOL 10 MG/ML 20 ML VIAL IV ONE (13:13)
[2019-06-23] MEDS ORDERED: LIDOCAINE 1% INJ 10MG/ML (20 ML MDV) SQ ONE ×2 (13:45→13:47)
--- NOTE | 2019-06-23 15:38 | CDI ---
Documentation Clarification Form Date: 06/23/2019 03:06:08 PM From: Elsa Kaiser RN CCDS Admit Date: 06/22/2019 04:52:00 PM Patient Name: Rajeev Peck Visit Number: [id number] Discharge Date: ATTENTION: The Clinical Documentation Specialists (CDI) and [facility] Coding Staff appreciate your assistance in clarifying documentation. Please respond to the clarification below the line at the bottom and electronically sign. The CDI & [facility] Coding staff will review the response and follow-up if needed. Please note: Queries are made part of the Legal Health Record. If you have any questions, please contact the author of this message via ITS. Dr. 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 Medical history of ischemic cardiomyopathy and heart failure Clinical Indicators: VS/Pulse OX: 06/21 148/93 90 98.6 16 98% ra Echocardiogram Results: 05/05/2019 There is mild concentric left ventricular hypertrophy. There is severe global hypokinesis of LV. Overall left ventricular systolic function is severely impaired with, an EF <20% Increased Lap Grade III Diastolic Dysfunction. Chest X Ray: 06/22 no evidence for acute pulmonary disease Treatment: / Coreg Po Bid; / Lasix Po Bid; 2/5 Cozaar Po Daily; Aldactone Po Bid In your professional opinion, can you please clarify the acuity and type of Heart Failure if known? * Chronic Systolic Heart Failure * Chronic Systolic & Diastolic Heart Failure * Unable to Determine * Other, please specify (Last Revision: August 2017) Chronic systolic heart failure MTDD
[2019-06-23] MEDS: ACETAMINOPHEN TAB 325 MG TAB PO PRN (20:24)
--- NOTE | 2019-06-23 23:27 | PCN ---
PROCEDURE NOTE This is a 75-year-old male patient who underwent a biventricular ICD implantation. There was atrial lead dislodgement. He was brought in for extraction of the screw-in [place] collection team lead and implantation of a james Medtronic lead. The patient brought to the EP lab in a fasting state. Written informed consent was obtained prior to the procedure. IV vancomycin had been infused in the morning prior to admission to the lab and he received IV Kefzol perioperatively also. The left pectoral area was prepped and draped as per protocol. 1% lidocaine was used for local anesthesia. An incision made directly over the previous surgical site and carried down to the level of the generator. The generator was explanted. The atrial lead was freed at the level of the sleeve and the lead screw was retracted. Following that, using the under the insulation technique, while the guidewire was placed in the venous circulation successfully, and the atrial lead was extracted. The sheath was placed and an inner Medtronic lead was placed in the right atrial appendage and seemed to be in very stable position despite a fair amount of mechanical motion, there was absolutely no dislodgement of this lead. The lead was placed in good position with good appendage motion. The P waves were greater than 5 mV. Pacing impedance 600 ohms, pacing threshold 0.5 V at 0.5 milliseconds. The RV and LV leads also tested in the leads. The sensing and pacing thresholds were stable. The new atrial lead was a Medtronic 45, 74, 53 cm length in length and serial number [id number]. This was connected to the generator and biventricular generator was placed back in the pocket and secured to the underlying muscle. The wound was closed in 3 layers and dressed per protocol. Cinefluoroscopy at the end of the procedure and documented stable lead atrial RV and LV lead positions, the RV and LV lead positions remained unchanged from baseline. Patient tolerated procedure well without any acute complications. PLAN: IV antibiotics, chest x-ray and device interrogation tomorrow. MMODL / IJN: [id number] /
[2019-06-24 00:28] VITALS: RESP 18
[2019-06-24] MEDS: LACTATED RINGERS 1,000 ML IV SCH (02:04)
[2019-06-24] MEDS: SODIUM CHLORIDE 0.9% 1,000 ML IV SCH ×2 (02:04)
[2019-06-24 07:34] VITALS: TEMP 98.3
--- NOTE | 2019-06-24 08:16 | XR ---
EXAMINATION TYPE: XR chest 2V DATE OF EXAM: 06/24/2019 COMPARISON: 06/22/2019 TECHNIQUE: PA and lateral views submitted. HISTORY: Lead placement check FINDINGS: The lungs are clear and there is no pneumothorax, pleural effusion, or focal pneumonia. Multi lead cardiac device is seen and appears to have a proximal lead overlying the right atrium and 2 additiona l leads overlying the ventricles. Hypertrophic and degenerative change of the spine noted. No overt f ailure. Heart size stable. Linear changes left lung base likely in the basis of bronchiectasis or ate lectasis. IMPRESSION: 1. No postprocedural complication.
[2019-06-24] MEDS: LOSARTAN 25 MG TAB PO SCH (08:32)
[2019-06-24] MEDS: SPIRONOLACTONE 25 MG TAB PO SCH (08:32)
[2019-06-24] MEDS: CARVEDILOL 1.563 MG TAB PO SCH (08:32)
[2019-06-24] MEDS: ASPIRIN 81 MG PO SCH (08:32)
[2019-06-24] MEDS: FUROSEMIDE 20 MG TAB PO SCH (08:37)
[2019-06-24] MEDS: ATORVASTATIN 20 MG TAB PO SCH (08:38)
[2019-06-24] MEDS: ACETAMINOPHEN TAB 325 MG TAB PO PRN (08:46)
[2019-06-24 11:34] VITALS: BP 111/68; PULSE 53
== END 2019-06-24 14:14 | disposition home or self-care (01) | DRG 227 ==
LOC: CATHEP 14:27 → 1SOBS 18:51 → CATHEP 06-22 17:13
PROVIDERS: ADMIT Internal Medicine Clinical Cardiac Electrophysiology; ATTEND Internal Medicine Clinical Cardiac Electrophysiology
PROC: 02HK3KZ Insertion of Defibrillator Lead into Right Ventricle, Percutaneous Approach (ICD-10-PCS; principal; 2019-06-21 15:30)
PROC: 02HL3KZ Insertion of Defibrillator Lead into Left Ventricle, Percutaneous Approach (ICD-10-PCS; principal; 2019-06-21 15:30)
PROC: 0JH609Z Insertion of Cardiac Resynchronization Defibrillator Pulse Generator into Chest Subcutaneous Tissue and Fascia, Open Approach (ICD-10-PCS; principal; 2019-06-21 15:30)
PROC: B51N1ZZ Fluoroscopy of Left Upper Extremity Veins using Low Osmolar Contrast (ICD-10-PCS; principal; 2019-06-21 15:30)
PROC: 02H63KZ Insertion of Defibrillator Lead into Right Atrium, Percutaneous Approach (ICD-10-PCS; principal; 2019-06-21 15:30)
PROC: 02H63KZ Insertion of Defibrillator Lead into Right Atrium, Percutaneous Approach (ICD-10-PCS; 2019-06-23 13:13)
PROC: 02PA3MZ Removal of Cardiac Lead from Heart, Percutaneous Approach (ICD-10-PCS; 2019-06-23 13:13)
DX: T82.120A Displacement of cardiac electrode, initial encounter (principal); I50.22 Chronic systolic (congestive) heart failure; I11.0 Hypertensive heart disease with heart failure; I25.5 Ischemic cardiomyopathy; I44.0 Atrioventricular block, first degree; I25.10 Atherosclerotic heart disease of native coronary artery without angina pectoris; I44.7 Left bundle-branch block, unspecified; I25.2 Old myocardial infarction; E78.5 Hyperlipidemia, unspecified; M19.90 Unspecified osteoarthritis, unspecified site; Z79.82 Long term (current) use of aspirin; Z79.899 Other long term (current) drug therapy; Z95.5 Presence of coronary angioplasty implant and graft; Z87.891 Personal history of nicotine dependence
CPT/HCPCS: 33225; 33249; 71046

== ENCOUNTER → 2023-08-10 | Outpatient (CLI) | payer MEDICARE ==
--- NOTE | 2023-08-11 18:21 | CA ---
Transthoracic Echo Report Name: Rajeev Peck Age: 78 Gender: M : 1945 Exam Date: 08/10/2023 14:31 Exam Location: [place] [facility] Ht (in): 67 Wt (lb): 180 Ordering Physician: Luiz Kimble MD Attending/Referring Phys: [facility] Michelle Salazar RDCS Procedure CPT: Indications: I42.9 Cardiac Hx: Technical Quality: Fair Contrast 1: Total Dose (mL): Contrast 2: Total Dose (mL): MEASUREMENTS (Male / Female) Normal Values 2D ECHO LV Diastolic Diameter PLAX 5.8 cm 4.2 - 5.9 / 3.9 - 5.3 cm LV Systolic Diameter PLAX 5.2 cm IVS Diastolic Thickness 1.2 cm 0.6 - 1.0 / 0.6 - 0.9 cm LVPW Diastolic Thickness 1.2 cm 0.6 - 1.0 / 0.6 - 0.9 cm LV Relative Wall Thickness 0.4 RV Internal Dim ED PLAX 3.9 cm LV Diastolic Volume MOD BP 203.8 cm??? 67 - 155 / 56 - 104 cm??? LV Systolic Volume MOD BP 124.7 cm??? 22 - 58 / 19 - 49 cm??? LV Ejection Fraction MOD BP 38.8 % >= 55 % LV Cardiac Index MOD BP 3189.2 cm???/min???m??? LV Diastolic Volume MOD 4C 239.7 cm??? LV Systolic Volume MOD 4C 131.5 cm??? LV Ejection Fraction MOD 4C 45.1 % LV Cardiac Index MOD 4C 4362.7 cm???/min???m??? LV Diastolic Length 4C 9.7 cm LV Systolic Length 4C 8.3 cm LV Diastolic Volume MOD 2C 166.1 cm??? LV Systolic Volume MOD 2C 118.7 cm??? LV Ejection Fraction MOD 2C 28.6 % LV Cardiac Index MOD 2C 1912.7 cm???/min???m??? LV Diastolic Length 2C 9.3 cm LV Systolic Length 2C 8.3 cm LA Volume 107.3 cm??? 18 - 58 / 22 - 52 cm??? LA Volume Index 54.1 cm???/m??? 16 - 28 cm???/m??? M-MODE Aortic Root Diameter MM 2.9 cm LA Systolic Diameter MM 4.3 cm LA Ao Ratio MM 1.5 AV Cusp Separation MM 1.6 cm DOPPLER AV Peak Velocity 125.6 cm/s AV Peak Gradient 6.3 mmHg AV Mean Velocity 82.4 cm/s AV Mean Gradient 3.2 mmHg AV Velocity Time Integral 24.8 cm LVOT Peak Velocity 57.9 cm/s LVOT Peak Gradient 1.3 mmHg LVOT Velocity Time Integral 11.4 cm MV Area PHT 3.8 cm??? Mitral E Point Velocity 93.0 cm/s Mitral A Point Velocity 49.5 cm/s Mitral E to A Ratio 1.9 MV Deceleration Time 201.7 ms MV E' Velocity 4.2 cm/s Mitral E to MV E' Ratio 22.1 FINDINGS Left Ventricle Mildly increased septal wall thickness. Severely increased left ventricular diastolic volume. Severely increased left ventricular systolic volume. Decreased left ventricular ejection fraction. Left ventricular ejection fraction is estimated at 25-30 %. Global hypokinesis. Mildly dilated left ventricle. Right Ventricle Mild right ventricular dilatation. A wire was noted in the right ventricle Right Atrium Normal right atrial size. Left Atrium Severely increased left atrial volume. Mildly increased left atrial area. Mitral Valve Structurally normal mitral valve. Mild mitral annular calcification. Mild-to- moderate mitral regurgitation. Aortic Valve Trileaflet aortic valve. No aortic valve stenosis or regurgitation. Tricuspid Valve Structurally normal tricuspid valve. Mild tricuspid regurgitation. Pulmonic Valve Pulmonic valve not well visualized. Pericardium Minimal pericardial effusion (normal variant). Aorta Normal size aortic root and proximal ascending aorta. CONCLUSIONS 1. Severely impaired left ventricle systolic function with global hypokinesis 2. Mild to moderate mitral with mild tricuspid regurgitation 3. A wire is noted in the right ventricle Previewed by: Dr. Carmita Fairchild MD (Electronically Signed) Final Date: 11 August 2023 18:20
== END | disposition home or self-care (01) ==
LOC: RADECHMAIN 14:09
PROVIDERS: ATTEND Internal Medicine Geriatric Medicine
DX: I07.1 Rheumatic tricuspid insufficiency (principal); I42.9 Cardiomyopathy, unspecified
CPT/HCPCS: 93306